=== PATIENT | male | born 1980 | race Caucasian/White ===

== ENCOUNTER 2021-04-22 14:23 | Emergency (ER) | payer OTHER, SELFPAY ==
[2021-04-22 14:23] VITALS: BP 136/100; PULSE 117; RESP 16; TEMP 36.9; O2SAT 100
--- NOTE | 2021-04-22 15:06 | ED.EYEPROB ---
HPI - Eye Problem General Chief complaint: Eye Problems Stated complaint: poss pink eye Time Seen by Provider: 04/22/21 14:37 Source: patient Mode of arrival: ambulatory Limitations: no limitations History of Present Illness HPI Narrative: Patient is a 41-year-old male complaining of left eye redness and matting of his eyelashes that started when he woke up this morning. Patient states that he might of scratched his eye trying to get an eyelash out. Related Data Home Medications Medication Instructions Recorded Confirmed adalimumab 40 mg/0.8 mL See Rx Instructions SUBCUT .COMPLEX 11/10/20 11/10/20 subcutaneous syringe kit Allergies Allergy/AdvReac Type Severity Reaction Status Date / Time Penicillins Allergy Unknown Rash Verified 04/22/21 14:34 Review of Systems Review of Systems: All systems reviewed & are unremarkable except as noted in HPI and below PMFSH Past Medical History Medical History Anxiety Arthritis Constipation Depression Diarrhea Hypertension Psoriasis Psoriatic arthritis Vision changes Wears glasses Family History Family History Other Depression Family history of arthritis Family history of gastrointestinal disorder Hypertension Social History Social History Smoking packs per day: 0.5 Smoking cigarettes per day: 10.0 Years smoked: 15 Smoking pack-years: 7.50 Smoking status: Current every day smoker Tobacco type: cigarettes Smoking end date: 07/01/15 Alcohol intake: current Drinks per week: 10 Gender identity (if verbalized by the patient): Male Exam Const: General: no acute distress and alert Orientation/consciousness: patient oriented x3 HENMT: Head: normal to inspection Ears: external ears normal General nose exam: Normal external nose present Mouth: Yes moist mucous membranes Eyes: Other: Injected conjunctiva left eye, negative for abrasion, negative corneal ulcer Neck: Neck: normal visual inspection Resp: Effort & Inspection: normal respiratory effort Neuro: General: patient oriented x3 and moves all extremities Course Vital Signs Vital signs: Vital Signs Temperature 36.9 C 04/22/21 14:23 Pulse Rate 117 H 04/22/21 14:23 Respiratory Rate 16 04/22/21 14:23 Blood Pressure 136/100 H 04/22/21 14:23 Pulse Oximetry 100 10/23/21 14:23 Temperature 36.9 C 04/22/21 14:23 Pulse Rate 117 H 04/22/21 14:23 Respiratory Rate 16 04/22/21 14:23 Blood Pressure 136/100 H 04/22/21 14:23 Pulse Oximetry 100 04/22/21 14:23 Discharge Plan Discharge Clinical Impression: Conjunctivitis Qualifiers: Conjunctivitis type: acute Acute conjunctivitis type: unspecified Laterality: left Qualified Code(s): H10.32 - Unspecified acute conjunctivitis, left eye Patient Disposition: Home, Self-Care Condition: Stable Instructions: Antibiotic Form, Conjunctivitis (ED) Prescriptions: New tobramycin 0.3 % drops 2 drp LEFT EYE Q4H Qty: 5 RF: 0 No Action Humira 40 mg/0.8 mL syringe kit See Rx Instructions subcut .COMPLEX RF: 0 Follow-up/Referrals: PHYSICIAN,OBIEE ARCHITECT [Primary Care Provider] - Time of Disposition: 15:11
== END 2021-04-22 16:15 | disposition home or self-care (01) ==
PROVIDERS: Emergency Provider Emergency Medicine
DX: H10.32 Unspecified acute conjunctivitis, left eye (principal); I10 Essential (primary) hypertension; M19.90 Unspecified osteoarthritis, unspecified site; L40.50 Arthropathic psoriasis, unspecified; F17.210 Nicotine dependence, cigarettes, uncomplicated
CPT/HCPCS: 99283

== ENCOUNTER 2021-08-11 05:50 | Emergency (ER) | payer OTHER, SELFPAY ==
[2021-08-11 05:58] VITALS: BP 122/77; PULSE 93; RESP 15; TEMP 36.3; O2SAT 100
--- NOTE | 2021-08-11 07:58 | PC.NURSE ---
Registration informed nurses station that pt is walking out
[2021-08-11 08:09] VITALS: BP 116/71; PULSE 100; RESP 18; O2SAT 100
--- NOTE | 2021-08-11 08:29 | PC.NURSE ---
pt walked self out again.
--- NOTE | 2021-08-11 08:54 | PC.NURSE ---
Pt seen walking out of room. tells a tech that he wants to leave but wants paperwork showing that he was here. Pt has no been seen by a provider yet.
--- NOTE | 2021-08-11 09:17 | ED.GENADULT ---
HPI - General Adult General Chief complaint: Skin/Abscess/Foreign Body Stated complaint: poison susana/oak Time Seen by Provider: 08/11/21 09:04 Source: patient Mode of arrival: ambulatory Limitations: no limitations History of Present Illness HPI narrative: Patient is 41 years old white male presents with itching rash started 5 days ago. Patient was working at a [employer] at that time and at the middle of the shift started having the above symptoms. History of psoriatic arthritis. Patient denies difficulty speaking, swallowing or breathing Related Data Home Medications Medication Instructions Recorded Confirmed adalimumab 40 mg/0.8 mL See Rx Instructions SUBCUT .COMPLEX 11/10/20 11/10/20 subcutaneous syringe kit Allergies Allergy/AdvReac Type Severity Reaction Status Date / Time Penicillins Allergy Unknown Rash Verified 08/11/21 06:02 Review of Systems Review of Systems: CONSTITUTIONAL: Denies fever, chills, or sweats. EYES: Denies visual changes, redness, or discharge. ENT: Denies rhinorrhea, congestion, sore throat, or otalgia. CARDIOVASCULAR: Denies chest pain, palpitations, or edema. RESPIRATORY: Denies cough or dyspnea. GASTROINTESTINAL: Denies abdominal pain, nausea, vomiting, or diarrhea. GENITOURINARY: Denies dysuria or hematuria. SKIN: Denies rash or itching. MUSCULOSKELETAL: Denies back pain, joint pain, or myalgia. NEUROLOGIC: Denies headache, numbness, or weakness. PSYCHIATRIC: Denies anxiety or depression. PMFSH Past Medical History Medical History Anxiety Arthritis Constipation Depression Diarrhea Hypertension Psoriasis Psoriatic arthritis Vision changes Wears glasses Family History Family History Other Depression Family history of arthritis Family history of gastrointestinal disorder Hypertension Social History Social History Smoking packs per day: 0.5 Smoking cigarettes per day: 10.0 Years smoked: 15 Smoking pack-years: 7.50 Smoking status: Current every day smoker Tobacco type: cigarettes Smoking end date: 07/01/15 Alcohol intake: current Drinks per week: 10 Gender identity (if verbalized by the patient): Male Exam Narrative: General appearance: Well-developed, well-nourished Skin: Scattered maculopapular rash Head: Normocephalic, nontraumatic Eyes: Clear conjunctiva ENT: Oropharynx normal, ears normal, nose normal Neck: Supple, nontender Chest and respiratory: Airway patent, no respiratory distress, no accessory muscle use Heart: Regular rate/rhythm Neurologic: Alert and oriented ?3, COMMUNICATIONS ADMINISTRATOR is normal as tested, no gross motor deficit Course Course Emergency Course: Stable, improving Vital Signs Vital signs: Vital Signs Temperature 36.3 C L 08/11/21 05:58 Pulse Rate 93 08/11/21 05:58 Respiratory Rate 15 08/11/21 05:58 Blood Pressure 122/77 08/11/21 05:58 Pulse Oximetry 100 08/11/21 05:58 Temperature 36.3 C L 08/11/21 05:58 Pulse Rate 100 08/11/21 08:09 Respiratory Rate 18 08/11/21 08:09 Blood Pressure 116/71 08/11/21 08:09 Pulse Oximetry 100 08/11/21 08:09 Medical Decision Making [facility] Narrative Medical decision making narrative: Contact dermatitis versus flareup of psoriasis Differential Diagnosis Differential Diagnosis: Acute dermatitis, flareup of psoriasis Vital Signs Vital Signs: Vital Signs Temperature 36.3 C L 08/11/21 05:58 Pulse Rate 93 08/11/21 05:58 Respiratory Rate 15 08/11/21 05:58 Blood Pressure 122/77 08/11/21 05:58 Pulse Oximetry 100
[2021-08-11] MEDS: EPINEPHrine HCL INJ 1 MG/ML AMPUL 0.3 MG IM (09:25)
[2021-08-11] MEDS: LORATADINE 10 MG TABLET PO (09:25)
== END 2021-08-11 09:35 | disposition home or self-care (01) ==
PROVIDERS: Emergency Provider Emergency Medicine; PCP Family Medicine
DX: L30.9 Dermatitis, unspecified (principal); I10 Essential (primary) hypertension; M19.90 Unspecified osteoarthritis, unspecified site; L40.50 Arthropathic psoriasis, unspecified; Z87.891 Personal history of nicotine dependence
CPT/HCPCS: 96372; 99283; A9270; J0171

== ENCOUNTER 2021-08-31 05:46 | Emergency (ER) | payer OTHER, SELFPAY ==
[2021-08-31 05:43] VITALS: BP 162/114; PULSE 87; RESP 16; TEMP 37.1; O2SAT 100
--- NOTE | 2021-08-31 05:57 | ECG_ITS ---
Measurements Intervals Harris Rate: 81 P: 15 MA: 173 QRS: -7 QRSD: 106 T: 17 QT: 388 QTc: 451 Interpretive Statements SINUS RHYTHM MINIMAL VOLTAGE CRITERIA FOR LVH, CONSIDER NORMAL VARIANT [MEETS CRITERIA IN ONE OF: R(aVL), S(V1), R(V5), R(V5/V6)+S(V1)] BORDERLINE ECG Electronically Signed On 08-31-2021 9:59:19 RESTORATIVE CARE TECHNICIAN by Ki Hollingsworth M.D.
--- NOTE | 2021-08-31 06:06 | ED.RECABL ---
HPI - Recheck/Abnormal Lab/Rx General Chief Complaint: Recheck/Abnormal Lab/Rx Stated Complaint: INCREASED BP AFTER DR DECREASED METOPROLOL Time Seen by Provider: 08/31/21 05:48 Source: patient History of Present Illness HPI narrative: Patient presents with concern for elevated blood pressure. Patient work-up this morning he felt shaky dizzy and had some blurry vision he took his blood pressure is 180 systolic he was concerned so called an ambulance he did not want to drive to the hospital thinking he may pass out. EMS also noted elevated blood pressure of 180 systolic. On arrival to the ER patient reports he started to feel improved. Reports some blurry vision but denies lightheadedness, chest pain, shortness of breath abdominal pain nausea, vomiting. Reports he was feeling well yesterday. Does report approximate 1 week ago he had a syncopal event his primary care doctor decreased his metoprolol from 75 mg twice daily to 25 mg twice daily his blood pressure has been doing well since that change. Related Data Home Medications Medication Instructions Recorded Confirmed adalimumab 40 mg/0.8 mL See Rx Instructions SUBCUT .COMPLEX 11/10/20 11/10/20 subcutaneous syringe kit Allergies Allergy/AdvReac Type Severity Reaction Status Date / Time Penicillins Allergy Unknown Rash Verified 08/31/21 05:53 Review of Systems Review of Systems: CONSTITUTIONAL: Denies fever, chills, or sweats. EYES: Denies redness, or discharge. ENT: Denies rhinorrhea, congestion, sore throat, or otalgia. CARDIOVASCULAR: Denies chest pain, palpitations, or edema. RESPIRATORY: Denies cough or dyspnea. GASTROINTESTINAL: Denies abdominal pain, nausea, vomiting, or diarrhea. GENITOURINARY: Denies dysuria or hematuria. SKIN: Denies rash or itching. MUSCULOSKELETAL: Denies back pain, joint pain, or myalgia. NEUROLOGIC: Denies headache, numbness, dizziness, or weakness. PSYCHIATRIC: Denies anxiety or depression. All systems reviewed & are unremarkable except as noted in HPI and below PMFSH Past Medical History Medical History Anxiety Arthritis Constipation Depression Diarrhea Hypertension Psoriasis Psoriatic arthritis Vision changes Wears glasses Family History Family History Other Depression Family history of arthritis Family history of gastrointestinal disorder Hypertension Social History Social History Smoking packs per day: 0.5 Smoking cigarettes per day: 10.0 Years smoked: 15 Smoking pack-years: 7.50 Smoking status: Current every day smoker Tobacco type: cigarettes Smoking end date: 07/01/15 Alcohol intake: current Drinks per week: 10 Gender identity (if verbalized by the patient): Male Exam Narrative: GENERAL: Well-appearing, well-nourished, and in no acute distress. HEAD: Normocephalic, atraumatic. EYES: PERRLA and EOMI. ENT: Nares clear, no rhinorrhea or epistaxis. Mucous membranes moist. NECK: Supple. No masses. No JVD CHEST: Clear to auscultation. No respiratory distress. No wheezes rales or rhonchi HEART: Regular rate and rhythm. No murmur heard. Normal peripheral pulses. ABDOMEN: Soft, nontender, nondistended, normal active bowel sounds. EXTREMITIES: Normal range of motion. No edema. SKIN: Warm, dry, no rash. NEURO: Cranial nerves II through XII are intact patient is 5 out of 5 strength in all extremities, sensation intact to light in all extremities alert and oriented x3. PSYCH: Normal mood and affect. Course Reevaluation(s) Reevaluation #1: Patient resting comfortably and is comfortable outpatient plan. Work-up reviewed with patient to include his CBC findings. Findings appear stable patient recommended he follow-up with his primary care doctor for further evaluation as he is not aware of his CBC abnormalities. Date: 08/31/21
[2021-08-31 06:14] LABS: Basophils Percent Auto 1.9 % (0.2-1.2); Eosinophils Percent Auto 1.9 % (0-4.4); Hematocrit 32.2 % (42.0-52.0); Hemoglobin 10.9 g/dL (14.0-18.0); Lymphocytes Absolute Auto 0.74 K/mm3 (0.9-3.2); Lymphocytes Percent Auto 34.7 % (18.3-44.2); Mean Corpuscular HGB Conc 33.9 g/dl (32-36); Mean Corpuscular Hemoglobin 33.4 pg (26-34); Mean Corpuscular Volume 98.8 fl (80-100); Mean Platelet Volume 9.1 fl (7.4-10.4); Monocytes Absolute Auto 0.4 K/mm3 (0.1-0.6); Monocytes Percent Auto 18.8 % (2.6-8.5); Neutrophils Absolute Auto 0.9 K/mm3 (1.3-6.7); Neutrophils Percent Auto 42.7 % (45.5-73.1); Platelet Count Result 96 k/mm3 (150-375); Red Blood Count 3.26 M/mm3 (4.6-6.20); Red Cell Distribution Width 13.3 % (11.5-14.5); White Blood Count 2.1 K/mm3 (4.5-10.0)
[2021-08-31 06:25] LABS: Add Urine Microscopic? YES; Appearance Urine Cloudy (Clear); Bilirubin Urine Negative (Negative); Blood Urine Negative (Negative); Color Urine Yellow (Yellow); Glucose Urine UA Negative (Negative); Ketones Urine Trace mg/dL (Negative); Leukocyte Esterase Ur Negative LEU/UL (Negative); Mucus Urine Few /lpf; Nitrate Urine Negative (Negative); Protein Urine 1+ mg/dL (Negative); RBC Urine 0-2 /hpf (0-2); Specific Grav Ur 1.017 (1.001-1.035); WBC Urine 0-3 /hpf
[2021-08-31 06:26] LABS: Alanine Aminotransferase 62 U/L (4-50); Albumin Level 4.6 g/dL (3.5-5.1); Alkaline Phosphatase 69 U/L (38-126); Anion Gap 15 mmol/L (8-16); Aspartate Amino Transferase 121 U/L (17-59); Bilirubin,Total 0.3 mg/dL (0.2-1.3); Blood Urea Nitrogen 10 mg/dL (9-20); Carbon Dioxide 27 mmol/L (22-30); Chloride 102 mmol/L (98-107); Estimated Glomerular Filt Rate > 60; Glucose 97 mg/dL (65-110); Potassium 3.3 mmol/L (3.4-5.0); Sodium 144 mmol/L (137-145)
[2021-08-31 06:39] VITALS: BP 141/101
== END 2021-08-31 07:12 | disposition home or self-care (01) ==
PROVIDERS: Emergency Provider Emergency Medicine; PCP Family Medicine
DX: I10 Essential (primary) hypertension (principal); M19.90 Unspecified osteoarthritis, unspecified site; L40.50 Arthropathic psoriasis, unspecified; F17.210 Nicotine dependence, cigarettes, uncomplicated
CPT/HCPCS: 36415; 80053; 81001; 85025; 93005; 99283

== ENCOUNTER 2022-11-20 08:32 | Inpatient (IN) | payer OTHER, SELFPAY ==
[2022-11-20] VITALS (12 sets, daily range): BP systolic 104–140; BP diastolic 62–100; PULSE 102–123; RESP 12–22; TEMP 36.6–37.2; O2SAT 97–100; BMI 17.9
--- NOTE | ~2022-11-20 | CT_ITS ---
EXAMINATION: CT brain wo con DATE: 11/20/2022 12:49 INDICATION: Seizure. Fall. TECHNIQUE: Computed tomography (CT) of the head was performed without intravenous contrast. The mA wa s adjusted according to patient size. Iterative reconstruction technique was employed. The dose-lengt h product was 681.00 mGy-cm. COMPARISON: Head CT 06/22/2017 FINDINGS: There is no intracranial hemorrhage, acute infarction, or abnormal intracranial mass lesion . The ventricles are normal in size. There is left periorbital soft tissue swelling. The orbits are n ormal. There is mild mucosal thickening in left maxillary sinus. The mastoid air cells are normal. IMPRESSION: 1. Normal brain. Reviewed, dictated and finalized at location A. IMPRESSION: 1. Normal brain.
--- NOTE | ~2022-11-20 | XR_ITS ---
EXAMINATION: XR elbow LT 2V DATE: 11/20/2022 10:08 INDICATION: Left elbow pain and swelling. TECHNIQUE: 2 views of left elbow were obtained. COMPARISON: None. FINDINGS: Bone alignment is normal. No fracture. Joint spaces are normal. There is an elbow joint eff usion. IMPRESSION: 1. Elbow joint effusion. No fracture identified. Reviewed, dictated and finalized at location A.
--- NOTE | ~2022-11-20 | XR_ITS ---
AP and oblique views of the right ribs, and AP and lateral chest radiographs Clinical History: Pain Findings: No rib fracture is seen. Osseous alignment is anatomic. Lungs are clear, without focal cons olidation or pleural effusion. Cardiomediastinal contour is within normal limits. Soft tissues are un remarkable. Impression: No rib fracture is seen. Clear lungs. Reviewed, dictated and finalized at location . Impression: No rib fracture is seen. Clear lungs.
--- NOTE | ~2022-11-20 | XR_ITS ---
EXAMINATION: XR chest 2V DATE: 11/24/2022 09:35 INDICATION: Fever. TECHNIQUE: Frontal and lateral views of the chest were obtained. COMPARISON: Chest 2 views 11/22/2022 FINDINGS: There is no pneumonia, pleural effusion, or pneumothorax. The heart size is normal. IMPRESSION: 1. No acute cardiopulmonary disease. Reviewed, dictated and finalized at location A.
--- NOTE | ~2022-11-20 | XR_ITS ---
AP view of the pelvis and AP and lateral views of the bilateral hips Clinical history: Pain Findings: No acute fracture or dislocation is seen. Osseous alignment is anatomic. Bilateral hip and SI joint spaces are preserved. Soft tissues are unremarkable. Impression: No significant abnormality is seen. Reviewed, dictated and finalized at location . Impression: No significant abnormality is seen.
--- NOTE | ~2022-11-20 | US_ITS ---
EXAMINATION: US venous doppler [facility] DATE: 11/24/2022 10:22 INDICATION: Lower limb pain. TECHNIQUE: Grayscale ultrasound images without and with compression and Doppler ultrasound images of the bilateral lower extremity veins were obtained. COMPARISON: Ultrasound 04/01/2013 FINDINGS: The visualized portions of right common femoral vein, profunda (deep) femoral vein, femoral vein, pop liteal vein, peroneal veins, posterior tibial veins, and greater saphenous vein outflow are patent. The visualized portions of left common femoral vein, profunda femoral vein, femoral vein, popliteal v ein, peroneal veins, posterior tibial veins, and greater saphenous vein outflow are patent. IMPRESSION: 1. No deep venous thrombosis. Reviewed, dictated and finalized at location A.
--- NOTE | ~2022-11-20 | XR_ITS ---
Left ankle Technique: AP and lateral views were obtained. Clinical History: Pain Findings: No acute fracture or dislocation is seen. Osseous alignment is anatomic. Ankle mortise and other visualized joint spaces are preserved. Soft tissues are otherwise unremarkable. Impression: Unremarkable left ankle. Reviewed, dictated and finalized at location . Impression: Unremarkable left ankle.
--- NOTE | ~2022-11-20 | US_ITS ---
Limited Abdominal Sonogram: Real-time sonographic imaging of the right upper quadrant was performed. Clinical History: Abnormal LFTs Findings: The liver appears echogenic, with no evidence of mass lesion or bile duct dilatation. Main portal vein demonstrates normal direction of flow. The gallbladder is well distended, and appears no rmal with no evidence of gallstone or wall thickening. The common bile duct measures 4 mm. The visua lized pancreas, aorta, and IVC are unremarkable. Impression: Diffuse fatty infiltration of liver. Reviewed, dictated and finalized at location M. Impression: Diffuse fatty infiltration of liver.
[2022-11-20 10:11] LABS: Basophils Percent Auto 0.3 % (0.2-1.2); Hematocrit 38.8 % (42.0-52.0); Hemoglobin 12.9 g/dL (14.0-18.0); Immature Granulocyte Absolute 0.06 K/mm3 (0.00-0.031); Immature Granulocyte Percent A 0.8 % (0-0.5); Immature Platelet Fraction Pct 10.8 % (0.9-11.2); Lymphocytes Absolute Auto 1.03 K/mm3 (0.9-3.2); Lymphocytes Percent Auto 14.1 % (18.3-44.2); Mean Corpuscular HGB Conc 33.2 g/dl (32-36); Mean Corpuscular Hemoglobin 34.4 pg (26-34); Mean Corpuscular Volume 103.5 fl (80-100); Mean Platelet Volume 11.8 fl (7.4-10.4); Monocytes Absolute Auto 1.1 K/mm3 (0.1-0.6); Monocytes Percent Auto 15.2 % (2.6-8.5); Neutrophils Absolute Auto 5.1 K/mm3 (1.3-6.7); Neutrophils Percent Auto 69.6 % (45.5-73.1); Platelet Count Result 68 k/mm3 (150-375); Red Blood Count 3.75 M/mm3 (4.6-6.20); Red Cell Distribution Width 12.8 % (11.5-14.5); White Blood Count 7.3 K/mm3 (4.5-10.0)
[2022-11-20 10:12] LABS: Alanine Aminotransferase 69 U/L (6-50); Albumin Level 5.5 g/dL (3.5-5.1); Alkaline Phosphatase 67 U/L (38-126); Anion Gap 33 mmol/L (8-16); Aspartate Amino Transferase 152 U/L (17-59); Bilirubin,Total 2.9 mg/dL (0.2-1.3); Blood Urea Nitrogen 13 mg/dL (9-20); Calcium 9.6 mg/dL (8.4-10.2); Carbon Dioxide 14 mmol/L (22-30); Chloride 85 mmol/L (98-107); Estimated CRCL calculation 144 ml/min; Estimated Glomerular Filt Rate > 60; Glucose 71 mg/dL (65-110); Potassium 3.1 mmol/L (3.4-5.0); Sodium 132 mmol/L (137-145)
[2022-11-20] MEDS: SODIUM CHLORIDE 0.9% IV 1,000 ML 999 ML IV CONT (12:33)
--- NOTE | 2022-11-20 12:49 | ED.ALCOHOL ---
HPI - Alcohol General Chief Complaint: Alcohol Stated Complaint: multiple complaints Time Seen by Provider: 11/20/22 10:25 Source: patient Mode of arrival: ambulatory Limitations: no limitations History of Present Illness HPI narrative: 42-year-old with a history of hypertension, chronic alcoholism here with complaints of having seizure. Patient states that he last drank 6 days ago and has not had a single drop of alcohol. Patient also states that he is not eating or drinking. He denies any chest pain or shortness of breath or abdominal pain. He states that he has taken medication few days ago and he ran out of his antiwithdrawal medication complaint: alcohol withdrawal Chronic alcohol use: Yes Previous visits for alcohol intoxication: No Associated symptoms: denies other symptoms Related Data Home Medications Medication Instructions Recorded Confirmed adalimumab 40 mg/0.8 mL See Rx Instructions subcut .COMPLEX 11/10/20 11/10/20 subcutaneous syringe kit (Humira) Allergies Allergy/AdvReac Type Severity Reaction Status Date / Time Penicillins Allergy Unknown Rash Verified 08/31/21 05:53 Review of Systems Review of Systems: All systems reviewed & are unremarkable except as noted in HPI and below Constitutional: Constitutional: Reports no additional constitutional complaints Eyes: Eyes: Reports no additional eye complaints ENT: Reports system reviewed and no additional complaints, except as documented Cardiovascular: Cardiovascular: Reports no additional cardiovascular complaints Respiratory: Respiratory: Reports no additional respiratory complaints Gastrointestinal: Gastrointestinal: Reports no additional gastrointestinal complaints Musculoskeletal: Musculoskeletal: Reports no additional musculoskeletal complaints PMFSH Past Medical History Medical History Anxiety Arthritis Constipation Depression Diarrhea Hypertension Psoriasis Psoriatic arthritis Vision changes Wears glasses Family History Family History Other Depression Family history of arthritis Family history of gastrointestinal disorder Hypertension Social History Social History Smoking packs per day: 0.5 Smoking cigarettes per day: 10.0 Years smoked: 15 Smoking pack-years: 7.50 Smoking status: Current every day smoker Tobacco type: cigarettes Smoking end date: 07/01/15 Alcohol intake: current Drinks per week: 10 Living arrangements: with family Gender identity (if verbalized by the patient): Male Exam Narrative: GENERAL: Well-appearing, well-nourished, and in no acute distress. HEAD: Normocephalic, atraumatic. EYES: PERRLA and EOMI. raccoon eye on the left ENT: Nares clear, no rhinorrhea or epistaxis. Mucous membranes moist. NECK: Supple. CHEST: Clear to auscultation. No respiratory distress. HEART: Tachycardic. No murmur heard. Normal peripheral pulses. ABDOMEN: Soft, nontender, nondistended, normal active bowel sounds. EXTREMITIES: Normal range of motion. No edema. SKIN: Warm, dry, no rash. NEURO: No focal deficits. Alert and oriented x3. PSYCH: Normal mood and affect. Course Course Emergency Course: Patient had no further episodes of seizures while he was here in the ER. I have reviewed his lab work and informed him that he needs to be admitted to the hospital he is willingly agreed. Discussed with Dr. Goetz accepted the patient Vital Signs Vital signs: Vital Signs Temperature 37.2 C 11/20/22 08:38 Pulse Rate 123 H 11/20/22 08:38 Respiratory Rate 16 11/20/22 08:38 Blood Pressure 129/100 H 11/20/22 08:38 Pulse Oximetry 100 11/20/22 08:38 Oxygen Delivery Room Air 11/20/22 08:38 Temperature 37.2 C 11/20/22 08:38 Pulse Rate 111 H 11/20/22 09:49 Respiratory Rate 12 11/20/22 09:49 Blood
[2022-11-20 13:27] LABS: Ethanol < 10 mg/dL (<10)
[2022-11-20] MEDS: POTASSIUM CHLORIDE 20 MEQ TABLET 40 MEQ PO (13:49)
[2022-11-20] MEDS: THIAMINE HCL 200 MG/2 ML VIAL 100 MG IV PUSH (13:50)
[2022-11-20] MEDS: LORazepam INJ (*CRX) 2 MG/ML VIAL IV PUSH ×3 (13:50→17:10)
[2022-11-20 13:58] LABS: Anion Gap 30 mmol/L (8-16); Blood Urea Nitrogen 12 mg/dL (9-20); Calcium 9.6 mg/dL (8.4-10.2); Carbon Dioxide 12 mmol/L (22-30); Chloride 90 mmol/L (98-107); Estimated CRCL calculation 144 ml/min; Estimated Glomerular Filt Rate > 60; Glucose 76 mg/dL (65-110); Magnesium 1.7 mg/dL (1.6-2.3); Potassium 3.1 mmol/L (3.4-5.0); Sodium 132 mmol/L (137-145)
[2022-11-20] MEDS: ONDANSETRON INJ 4 MG/2 ML VIAL IV PUSH (14:36)
[2022-11-20] MEDS: DEXTROSE 5%/0.9% SOD CHL 1,000 ML 100 ML IV CONT ×2 (14:41→23:47)
--- NOTE | 2022-11-20 15:17 | PM.IMHP ---
H&P: HPI History of Present Illness Date/Time: 11/20/22 14:30 Chief Complaint: Alcohol withdrawal symptoms. Narrative: This is a 42-year-old male with longstanding history of alcohol abuse, alcohol withdrawal seizures, hypertension, and psoriatic arthritis who presented to the emergency department via his own private vehicle from home for evaluation of alcohol withdrawal symptoms. He drinks up to 1/5 of alcohol a day and has for nearly 20 years. He has had periods of sobriety for no more than 2 to 3 months at a time. He has not drank for 6 days and he tells me that he has ?had a rough go of it.? The 1st couple of days he had pretty significant nausea and vomiting associated with sweats. He has become progressively more weak since that time and he has had several falls, none of which he remembers. He has since that he has been having alcohol withdrawal seizures as well due to a tongue laceration that he noticed yesterday. This morning his family encouraged him to come to the ER so he drove himself here. Vital signs on arrival: Temperature 98.9?, pulse 123, respiratory rate 16, blood pressure 129/100, pulse ox 100% room air. Labs were significant for a mild macrocytic anemia, thrombocytopenia, mild electrolyte abnormalities, increased anion gap, and elevated LFTs. Urine drug screen was negative and his ethyl alcohol level was less than 10. Brain CT showed no acute findings. Left elbow x-ray done due to pain and swelling showed and joint effusion with no evidence of fracture. He was aggressively hydrated and he required several doses of Ativan and Haldol for his withdrawal symptoms. When I initially saw the patient he was a bit tremulous and tachycardic though several hours later I was called to reassess him and he was standing up, confused, and hallucinating. He is now much more calm and he is being admitted to the IMU for close monitoring. Review of Systems Review of Systems: Twelve systems were reviewed. Endorses sweats. No fever or chills. Complains of tongue pain from tongue bite a couple of days ago. Has a mild headache but nothing significant. No vertigo. No visual changes. No focal weakness or paresthesias. Denies neuropathy symptoms. No sensations of racing heart or shortness of breath. He has not had any vomiting today. Denies hematemesis, melena, and hematochezia. Except as documented, all other systems were reviewed and are negative. [facility] Past Medical History Medical History (Updated 11/20/22 @ 23:36 by Katelyn Ramirez PA-C) Alcohol withdrawal seizure Alcoholism Anxiety Arthritis Depression Hypertension Psoriasis Psoriatic arthritis Surgical History Surgical History (Updated 11/20/22 @ 15:25 by Katelyn Ramirez PA-C) No history of previous surgery Family History Family History Other Depression Family history of arthritis Family history of gastrointestinal disorder Hypertension Social History Social History (Updated 11/20/22 @ 23:32 by Katelyn Ramirez PA-C) Social History: Surrogate medical decision maker: Cipriano Gutierres, father. Code status: Full code. Smoking packs per day: 0.5 Smoking cigarettes per day: 10.0 Years smoked: 15 Smoking pack-years: 7.50 Smoking status: Former smoker Tobacco type: cigarettes Smoking end date: 10/07/22 Alcohol intake: former Drinks per week: 28 Alcohol use details: Half to an entire 1/5 of vodka a day. Substance use: never Lack of Transportation: No Lack of Food: Never True Current Housing: I Have Housing Concerned About Future Housing: Decline to Answer Difficulty Paying Gas/Electric Bills: Decline to Answer Difficulty Paying for Meds: Decline to Answer Currently Unemployed: Decline to Answer Education: Decline to Answer Difficulty w/ Childcare or Family Care: Decline to Answer Additional living arrangements comments: Patient lives in his own house in [place].
--- NOTE | 2022-11-20 15:55 | PCRCNOTE ---
ABG NOT DRAWN AT THIS TIME PER MARQUES SHAH.; STATES WILL CALL WHEN PT. IS A LITTLE CALMER AND WE CAN DRAW THE ABG.
--- NOTE | 2022-11-20 16:45 | PC.NURSE ---
Dinner tray ordered for pt.
[2022-11-20] MEDS: HALOPERIDOL LACTATE 5 MG/ML VIAL (17:11)
[2022-11-20] MEDS: SODIUM BICARBONATE 8.4% 50 MEQ/50 ML SYRINGE 100 MEQ (18:15)
[2022-11-20 18:30] LABS: pH ABG 7.378 (7.350-7.450)
[2022-11-20 18:32] LABS: PCO2 ABG 17.6 mmHg (35.0-45.0); PO2 ABG 108.6 mmHg (80.0-100.0)
[2022-11-20 18:33] LABS: Base Excess ABG -12.6 mEq/l (+/-2.0); HCO3 ABG 10.1 mEq/l (22.0-26.0); Total Hemoglobin 12.5 g/dL (12.0-18.0)
[2022-11-20 18:34] LABS: Alveolar/Arterial O2 Gradient 20.1 mmHg; Oxygen Content ABG 17.1 %vol (16.0-22.0)
[2022-11-20 18:35] LABS: Oxyhemoglobin 96.6 % THb (90.0-100.0)
[2022-11-20 18:36] LABS: Carboxyhemoglobin 0.6 % THb (0-2.0); Methemoglobin ABG 0.3 %THb (0-1.5); Reduced Hemoglobin 2.5 %THb (0-5.0)
[2022-11-20 18:37] LABS: PO2 FiO2 Ratio Arterial Blood 5.17 %; Site Drawn LEFT BRACHIAL
[2022-11-20 18:42] LABS: Device ROOM AIR
[2022-11-20] MEDS: SODIUM CHLORIDE 0.9% IV 1,000 ML 125 ML IV CONT (19:15)
[2022-11-20 19:24] LABS: Folic Acid 5.4 ng/mL (2.76->20)
[2022-11-20 20:14] LABS: Amphetamine Screen Urine Negative (Negative); Barbiturate Screen Urine Negative (Negative); Benzodiazepines Screen Urine Negative (Negative); Cannabinoid Screen Urine Negative (Negative); Cocaine Screen Urine Negative (Negative); Methadone Screen Urine Negative (Negative); Opiate Screen Urine Negative (Negative); Phencyclidine Screen Urine Negative (Negative)
[2022-11-20 20:33] LABS: Anion Gap 20 mmol/L (8-16); Blood Urea Nitrogen 11 mg/dL (9-20); Calcium 8.2 mg/dL (8.4-10.2); Carbon Dioxide 17 mmol/L (22-30); Chloride 96 mmol/L (98-107); Estimated CRCL calculation 170 ml/min; Estimated Glomerular Filt Rate > 60; Glucose 72 mg/dL (65-110); Magnesium 1.6 mg/dL (1.6-2.3); Potassium 3.4 mmol/L (3.4-5.0); Sodium 133 mmol/L (137-145)
--- NOTE | 2022-11-20 20:44 | ADMGEN ---
This patient, Kian Gutierres, was admitted to Intensive Care Unit-6. Patient/family oriented to hospital policies and general routines including ID bracelet, bed and alarms, visiting hours, pain management, procedures, bathroom and other care routines, personal items, smoking policy, room service/diet, and visiting hours. Information on how to activate the Rapid Response Team has been discussed. Patient/Family are encouraged to report perceived risks to care and to ask questions if they do not understand what they are told or what they should do.
[2022-11-20 23:53] LABS: Lipase 155 U/L (23-300)
[2022-11-21] VITALS (17 sets, daily range): BP systolic 107–154; BP diastolic 65–103; PULSE 96–128; RESP 16–22; TEMP 36.4–37.4; O2SAT 97–100
[2022-11-21 00:06] LABS: Glucose Point of Care 79 mg/dl (65-105)
--- NOTE | 2022-11-21 00:59 | PC.NURSE ---
This patient, Kian Gutierres, was received from [ic[facility] 6] on 11/21/22 at 0040. Patient/family oriented to unit policies and routines
[2022-11-21] MEDS: CLINDAMYCIN 600 MG/D5W 50 ML 600 MG/50 ML PIGGYBACK 100 MG IVPB ×4 (01:42→21:10)
[2022-11-21 02:52] LABS: Iron 65 ug/dL (49-181)
[2022-11-21 03:01] LABS: Percent Iron Saturation 23 % (20-50)
[2022-11-21 04:56] LABS: Hematocrit 30.6 % (42.0-52.0); Hemoglobin 10.3 g/dL (14.0-18.0); Mean Corpuscular HGB Conc 33.7 g/dl (32-36); Mean Corpuscular Volume 104.1 fl (80-100); Mean Platelet Volume 10.2 fl (7.4-10.4); Platelet Count Result 69 k/mm3 (150-375); Red Blood Count 2.94 M/mm3 (4.6-6.20); Red Cell Distribution Width 13.1 % (11.5-14.5); White Blood Count 4.9 K/mm3 (4.5-10.0)
[2022-11-21 05:06] LABS: Prothrombin Time 13.2 Seconds (11.1-14.7)
[2022-11-21 05:10] LABS: Alanine Aminotransferase 49 U/L (6-50); Alkaline Phosphatase 47 U/L (38-126); Anion Gap 18 mmol/L (8-16); Aspartate Amino Transferase 96 U/L (17-59); Bilirubin,Total 1.6 mg/dL (0.2-1.3); Blood Urea Nitrogen 6 mg/dL (9-20); Calcium 7.8 mg/dL (8.4-10.2); Carbon Dioxide 15 mmol/L (22-30); Chloride 100 mmol/L (98-107); Estimated CRCL calculation 171 ml/min; Estimated Glomerular Filt Rate > 60; Glucose 90 mg/dL (65-110); Magnesium 1.5 mg/dL (1.6-2.3); Potassium 3.1 mmol/L (3.4-5.0); Sodium 133 mmol/L (137-145)
[2022-11-21 06:14] LABS: Glucose Point of Care 100 mg/dl (65-105)
[2022-11-21] MEDS: DEXTROSE 5%/0.9% SOD CHL 1,000 ML 150 ML IV CONT (06:44)
[2022-11-21] MEDS: PANTOPRAZOLE SODIUM IV 40 MG VIAL IV PUSH (08:19)
--- NOTE | 2022-11-21 10:52 | PM.IMPN ---
Progress Note: A&P Assessment and Plan (1) Alcohol withdrawal syndrome: Qualifiers: Complication of substance-induced condition: uncomplicated Qualified Code(s): F10.930 - Alcohol use, unspecified with withdrawal, uncomplicated Code(s): F10.939 - Alcohol use, unspecified with withdrawal, unspecified Status: Acute Assessment and Plan: Patient states he has not had any alcohol for 7 days. He probably fell (related to seizure?) resulting in the facial trauma. CT brain showing no acute findings except left periorbital swelling. Left elbow xray does shows joint effusion but not felt to be infectious. In the ED he was anxious, tremulous, and began hallucinating that improved with Ativan and Haldol. He was started on CIWA protocol running mostly 6-8. Patient was congratulated stopping alcohol use. Care coordination provided information about alcohol rehab. Discussed with him at length about the benefits of abstaining from alcohol use. Start thiamine and folic acid Increase activity Ativan available prn for elevated CIWA. Hold off on scheduled Librium at this time (2) Alcohol withdrawal seizure: Code(s): F10.939 - Alcohol use, unspecified with withdrawal, unspecified; R56.9 - Unspecified convulsions Status: Acute Assessment and Plan: Patient likely had seizure(s) at home over the last few days since stopping alcohol. He has evidence of tongue bite and bruising to suggests falls. No anti-epileptic meds at this time. Seizure precautions. (3) Alcoholic ketoacidosis: Code(s): E87.29 - Other acidosis Status: Acute Assessment and Plan: Serum bicarb dropped to 12 with AG 33. ABG with normal pH but pCO2 17. Received 2 amps of sodium bicarbonate in the ED. With IV fluids, his bicarb 15 but AG now 18. lactic acid normal. Continue IV fluids. (4) Dehydration: Code(s): E86.0 - Dehydration Status: Acute Assessment and Plan: He looked profoundly dry on exam and has been aggressively hydrated. (5) Tongue laceration: Code(s): S01.512A - Laceration without foreign body of oral cavity, initial encounter Status: Acute Assessment and Plan: Tongue laceration looks at least a day old. The wound is not gaping and not felt it needed sutures. He was started on clindamycin given his poor dental hygiene. (6) Electrolyte abnormality: Code(s): E87.8 - Other disorders of electrolyte and fluid balance, not elsewhere classified Status: Acute Assessment and Plan: Mild hyponatremia and hypokalemia. Mag level low today. Continue IV fluids Replace potassium and Mag Follow (7) Macrocytic anemia: Code(s): D53.9 - Nutritional anemia, unspecified Status: Acute Assessment and Plan: B12 and folate levels normal. [place] related to underlying liver disease from his alcholism. (8) Thrombocytopenia: Code(s): D69.6 - Thrombocytopenia, unspecified Status: Acute Assessment and Plan: Related to alcoholic liver disease. (9) Transaminitis: Code(s): R74.01 - Elevation of levels of liver transaminase levels Status: Acute Assessment and Plan: LFTs elevated felt related to alcoholic liver disease and alcoholic hepatitis. Abdominal exam is benign. LFTs better Trend LFTs. Plan Tobacco abuse - he was congratulated on stopping smoking DVT prophylaxis - SCDs Subjective Date/time seen: 11/21/22 10:52 Interval history: 42yo male with longstanding history of alcohol abuse, alcohol withdrawal seizures, hypertension, and psoriatic arthritis who presented to the emergency department via his own private vehicle from home for evaluation of alcohol withdrawal symptoms. Assuming care. Chart reviewed. Patient states he stopped smoking drinking about 7 days ago. He has bruising around the left eye and states he thinks he has pinkeye?. He did not taper off alcohol but stoppe
[2022-11-21] MEDS: MAGNESIUM SULF 2 GM/WATER 50ML 2 GM/50 ML BAG IVPB (10:58)
[2022-11-21] MEDS: POTASSIUM CHLORIDE 20 MEQ TABLET 40 MEQ PO (11:01)
[2022-11-21 11:11] LABS: Appearance Urine Clear (Clear); Bilirubin Urine Negative (Negative); Blood Urine 1+ (Negative); Color Urine Dark Yellow (Yellow); Glucose Urine UA Negative (Negative); Ketones Urine 4+ mg/dL (Negative); Leukocyte Esterase Ur Negative LEU/UL (Negative); Nitrate Urine Negative (Negative); Protein Urine 2+ mg/dL (Negative); Specific Grav Ur 1.021 (1.001-1.035); pH Urine 5.5 (5.0-9.0)
[2022-11-21 11:35] LABS: RBC Urine 0-2 /hpf (0-2); WBC Urine 0-3 /hpf (0-3)
[2022-11-21 11:37] LABS: Transitional Epi Cells Urine Few /hpf (None Seen)
[2022-11-21 11:39] LABS: Add Urine Microscopic? YES
[2022-11-21] MEDS: THIAMINE HCL 100 MG TABLET PO (11:58)
[2022-11-21] MEDS: FOLIC ACID 1 MG TABLET PO (11:59)
[2022-11-21] MEDS: SODIUM CHLORIDE 0.9% IV 1,000 ML 100 ML IV CONT (11:59)
[2022-11-21 12:41] LABS: Glucose Point of Care 115 mg/dl (65-105)
[2022-11-21 16:51] LABS: Glucose Point of Care 127 mg/dl (65-105)
[2022-11-21 23:28] LABS: Glucose Point of Care 121 mg/dl (65-105)
[2022-11-22] VITALS (23 sets, daily range): BP systolic 117–175; BP diastolic 90–125; PULSE 81–172; RESP 12–24; TEMP 36.2–38.2; O2SAT 93–100
[2022-11-22] MEDS: SODIUM CHLORIDE 0.9% IV 1,000 ML 100 ML IV CONT (01:15)
[2022-11-22 04:51] LABS: Hematocrit 31.8 % (42.0-52.0); Hemoglobin 10.6 g/dL (14.0-18.0); Immature Platelet Fraction Pct 5.3 % (0.9-11.2); Mean Corpuscular HGB Conc 33.3 g/dl (32-36); Mean Corpuscular Hemoglobin 34.3 pg (26-34); Mean Corpuscular Volume 102.9 fl (80-100); Mean Platelet Volume 9.6 fl (7.4-10.4); Platelet Count Result 85 k/mm3 (150-375); Red Blood Count 3.09 M/mm3 (4.6-6.20); White Blood Count 3.3 K/mm3 (4.5-10.0)
[2022-11-22 05:03] LABS: Alanine Aminotransferase 50 U/L (6-50); Albumin Level 4.3 g/dL (3.5-5.1); Alkaline Phosphatase 57 U/L (38-126); Anion Gap 7 mmol/L (8-16); Aspartate Amino Transferase 110 U/L (17-59); Bilirubin,Total 1.7 mg/dL (0.2-1.3); Blood Urea Nitrogen 2 mg/dL (9-20); Calcium 8.5 mg/dL (8.4-10.2); Carbon Dioxide 30 mmol/L (22-30); Chloride 98 mmol/L (98-107); Estimated CRCL calculation 264 ml/min; Estimated Glomerular Filt Rate > 60; Glucose 109 mg/dL (65-110); Magnesium 1.7 mg/dL (1.6-2.3); Potassium 3.6 mmol/L (3.4-5.0); Sodium 135 mmol/L (137-145)
[2022-11-22] MEDS: CLINDAMYCIN 600 MG/D5W 50 ML 600 MG/50 ML PIGGYBACK 100 MG IVPB (05:18)
[2022-11-22] MEDS: LORazepam INJ (*CRX) 2 MG/ML VIAL IV PUSH (05:28)
--- NOTE | 2022-11-22 08:20 | PC.NURSE ---
Saw shift lab technician nurse give 4mg ativan to this patient at 7:30am today. Do not see it documented now, so charting must not have saved.
[2022-11-22] MEDS: FOLIC ACID 1 MG TABLET PO (09:03)
[2022-11-22] MEDS: PANTOPRAZOLE 40 MG TABLET PO (09:03)
[2022-11-22] MEDS: THIAMINE HCL 100 MG TABLET PO (09:03)
[2022-11-22] MEDS: ACETAMINOPHEN 325 MG TABLET 650 MG PO ×2 (09:07→21:23)
[2022-11-22] MEDS: LORazepam INJ (*CRX) 2 MG/ML VIAL 1 MG IV PUSH (09:20)
--- NOTE | 2022-11-22 09:42 | PM.IMPN ---
Progress Note: A&P Assessment and Plan (1) Alcohol withdrawal syndrome: Qualifiers: Complication of substance-induced condition: uncomplicated Qualified Code(s): F10.930 - Alcohol use, unspecified with withdrawal, uncomplicated Code(s): F10.939 - Alcohol use, unspecified with withdrawal, unspecified Status: Acute Assessment and Plan: Patient states he has not had any alcohol for 8 days although appears to still be experiencing w/d symptoms. He probably fell (related to seizure?) resulting in the facial trauma; suspect also multiple falls given that the bruising is different stages. In the ED he was anxious, tremulous, and began hallucinating that improved with Ativan and Haldol. -CT brain showing no acute findings except left periorbital swelling. -Left elbow xray does shows joint effusion but not felt to be infectious. -Care coordination provided information about alcohol rehab. -Started on CIWA protocol. was better last night but worse this morning and received Ativan. -Possible hallucinations now. -Continue thiamine and folic acid -Unsteady gait. B12 and folate normal. Could be cerebellar ataxia from his alcohol abuse or related to deconditioning -tachycardic and Hypetensive now. TSH normal. Has a positive fluid balance. Related to w/d? Increase activity PT/OT Schedule Librium now Ativan available prn for elevated CIWA. Low dose Seroquel at night. More agitated today. Better with IV Ativan. Advance Librium. Consider Precedex. He has been here before with similar presentation requiring Precedex. (2) Alcohol withdrawal seizure: Code(s): F10.939 - Alcohol use, unspecified with withdrawal, unspecified; R56.9 - Unspecified convulsions Status: Acute Assessment and Plan: Patient likely had seizure(s) at home over the last few days since stopping alcohol. He has evidence of tongue bite and bruising to suggests falls. No anti-epileptic meds at this time. Seizure precautions.Now having pain in the left ankle and ribs so will check xrays. Brusing but no pain in the bilateral hip area. Tongue laceration does not look infected so will do peridex and stop abx. (3) Alcoholic ketoacidosis: Code(s): E87.29 - Other acidosis Status: Acute Assessment and Plan: Serum bicarb 12 with AG 33. ABG with normal pH but pCO2 17. Received 2 amps of sodium bicarbonate in the ED. lactic was normal. With IV fluids, his bicarb 30 with normal AG. Stop IV fluids. (4) Dehydration: Code(s): E86.0 - Dehydration Status: Acute Assessment and Plan: He looked profoundly dry on exam and has been aggressively hydrated. Positive fluid balance. Stop IV fluids (5) Tongue laceration: Code(s): S01.512A - Laceration without foreign body of oral cavity, initial encounter Status: Acute Assessment and Plan: Tongue laceration looks at least a day old. The wound was not gaping and not felt it needed sutures. He was started on clindamycin given his poor dental hygiene. No evidence of infection so stop abx now and add Peridex. (6) Electrolyte abnormality: Code(s): E87.8 - Other disorders of electrolyte and fluid balance, not elsewhere classified Status: Acute Assessment and Plan: Mild hyponatremia, hypoMg and hypokalemia. Na better and potassium and mag normal. Follow (7) Macrocytic anemia: Code(s): D53.9 - Nutritional anemia, unspecified Status: Acute Assessment and Plan: B12 and folate levels normal. Hgb remaining stable [place] related to underlying liver disease from his alcoholism. (8) Thrombocytopenia: Code(s): D69.6 - Thrombocytopenia, unspecified Status: Acute Assessment and Plan: Related to alcoholic liver disease. Slightly better today. (9) Transaminitis: Code(s): R74.01 - Elevation of levels of liver transaminase levels Status: Acute Assessment and Plan:
--- NOTE | 2022-11-22 10:08 | ECG_ITS ---
Measurements Intervals [place] Rate: 119 P: 19 [place]: 159 QRS: -13 QRSD: 96 T: 13 QT: 320 QTc: 450 Interpretive Statements SINUS TACHYCARDIA VOLTAGE CRITERIA FOR LVH BORDERLINE T WAVE ABNORMALITY- INFERIOR LEADS BASELINE ARTIFACT- II, III, AVF ABNORMAL ECG COMPARED TO ECG 08/31/2021 06:00:31 SINUS TACHYCARDIA NOW PRESENT Electronically Signed On 11-22-2022 10:53:15 CDT by Laron Us D.O.
[2022-11-22] MEDS: chlordiazePOXIDE (*CRX) 25 MG CAPSULE PO ×2 (10:32→12:27)
[2022-11-22] MEDS: LORazepam INJ (*CRX) 2 MG/ML VIAL 4 MG IV PUSH (11:30)
[2022-11-22 12:07] LABS: Glucose Point of Care 110 mg/dl (65-105)
[2022-11-22] MEDS: HALOPERIDOL LACTATE 5 MG/ML VIAL IM (12:31)
--- NOTE | 2022-11-22 13:01 | WPDCNINT ---
Assessment and Plan Assessment and plan (1) DTs (delirium tremens): Code(s): F10.931 - Alcohol use, unspecified with withdrawal delirium Status: Acute Assessment and Plan: Will start patient on Precedex infusion. Will give bolus followed by titratable infusion Continue p.r.n. Ativan as supplement Patient is also on scheduled Librium IVF bolus followed by infusion Continue thiamine and folic acid Physical restraints at this time until patient is more calm (2) Electrolyte abnormality: Code(s): E87.8 - Other disorders of electrolyte and fluid balance, not elsewhere classified Status: Acute Assessment and Plan: Patient's potassium level is on the lower side of normal. Will start IV fluids with potassium Will give Mag replacement Plan DVT prophylaxis -SCDs Case discussed with Dr. Yi from Internal Medicine Total Critical Care Time -32 minutes Due to a high probability of clinically significant, life threatening deterioration, the patient required my highest level of preparedness to intervene emergently and I personally spent this critical care time directly and personally managing the patient. This critical care time included obtaining a history; examining the patient; pulse oximetry; ordering and review of studies; arranging urgent treatment with development of a management plan; evaluation of patient's response to treatment; frequent reassessment; and discussions with other providers. It was exclusive of separately billable procedures and treating other patients and teaching time. Please see Assessment and Plan section and the rest of the note for further information on patient assessment and treatment [employer] Consult Note Consult date: 11/23/22 Reason for consult: DTs HPI: Kian Gutierres is a 42 year old male with past medical history of alcohol abuse alcohol withdrawal seizures hypertension and arthritis was admitted on 11/20 with alcohol withdrawal. Patient was found to be in ketoacidosis and had quit drinking few days ago after daily heavy drinking. He was admitted on to the floor. Head CT and other imaging was done which was unremarkable. Patient was treated with benzodiazepine and IV fluids. Over the course of hospitalization his symptoms initially improved. Was also treated with thiamine folic acid. Workup ulcer showed elevated liver enzymes and right upper quadrant ultrasound showed fatty liver disease. He also was thrombocytopenic leukopenic dehydrated and had electrolyte abnormalities. Today patient has been getting worse and was confused agitated uncooperative. Per nursing staff patient was hallucinating and trying to get out of bed and fight the staff. Patient had received 11 mg of Ativan over the course of day without any significant improved. Patient was tachycardic hypertensive. EKG was done which showed sinus tachycardia. Patient was transferred to ICU. Again on my examination patient agitated and using abusive language. He is confused and talking in appropriate. He is able to tell me his name profession and year but unable to provide any meaningful history. When I asked about him direct questions regarding review of systems he answers no to everything. He denied any chest pain shortness of breath nausea vomiting abdominal pain diarrhea constipation headache. Review of Systems Review of Systems: ROS unobtainable: Yes unobtainable due to medical condition PMFSH Past Medical History Medical History Alcohol withdrawal seizure Alcoholism Anxiety Arthritis Depression Hypertension Psoriasis Psoriatic arthritis Surgical History Surgical History No history of previous surgery Family History Family History Other Depression Family history of arthritis Family history of gastrointestinal disorder Hypertensio
--- NOTE | 2022-11-22 13:09 | PC.NURSE ---
Called Father and notified him of move to ICU.
[2022-11-22] MEDS: dexmedeTOMIDine 400 MCG/100 ML 400 MCG/100 ML BAG IV CONT (13:25)
[2022-11-22] MEDS: SODIUM CHLORIDE 0.9% IV 1,000 ML 999 ML IV CONT (13:25)
[2022-11-22] MEDS: KCL 20 MEQ/D5/0.45% SOD CHL 1,000 ML 100 ML IV CONT ×2 (13:53→22:40)
[2022-11-22] MEDS: MAGNESIUM SULF 2 GM/WATER 50ML 2 GM/50 ML BAG IVPB (13:54)
--- NOTE | 2022-11-22 14:17 | PC.NURSE ---
This patient, Kian Gutierres, was received from [ ] on 11/22/22 at 1245. Patient/family oriented to unit policies and routines
--- NOTE | 2022-11-22 14:30 | PC.NURSE ---
[id number] - Patient constantly trying to get up from bed and/or chair. Patient a 2 assist with wheeled walker and gate belt, and falling to the location he was moving to. Dr. Yi called to bedside since it was still to early to give CIWA Ativan. 1mg Ativan ordered. 1030 - Dr. Yi called to bedside for patient crawling out of bed and getting verbally aggressive with staff and wanting to leave. Dr. Yi was able to talk him down and get him to agree to stay for x-rays. Sitter now at bedside. 1125 - 4mg Ativan given per protocol. Patient still trying to climb out of bed and hit nursing staff. Dr. Yi again at bedside, Order to give Haldol originally received, but then Dr. Yi said to hold for now since he was once again to talk him down. 1220 - Patient again trying to get out of bed and head butt staff. Dr. Yi called to bedside, said we could now give the Haldol IM. Minimal to no improvement in agitation. 1240 moved patient with all belongings to ICU 9
[2022-11-22 18:11] LABS: Glucose Point of Care 128 mg/dl (65-105)
[2022-11-22] MEDS: chlordiazePOXIDE (*CRX) 25 MG CAPSULE 50 MG PO (21:25)
[2022-11-23] VITALS (119 sets, daily range): BP systolic 123–165; BP diastolic 92–116; PULSE 71–112; RESP 11–28; TEMP 37.3–38.7; O2SAT 97–100
[2022-11-23] MEDS: dexmedeTOMIDine 400 MCG/100 ML 400 MCG/100 ML BAG 9.28 MCG IV CONT (00:32)
[2022-11-23 00:40] LABS: Glucose Point of Care 121 mg/dl (65-105)
[2022-11-23 03:29] LABS: Basophils Percent Auto 0.8 % (0.2-1.2); Eosinophils Percent Auto 0.4 % (0-4.4); Hematocrit 31.7 % (42.0-52.0); Hemoglobin 10.6 g/dL (14.0-18.0); Immature Granulocyte Absolute 0.02 K/mm3 (0.00-0.031); Immature Granulocyte Percent A 0.8 % (0-0.5); Immature Platelet Fraction Pct 4.3 % (0.9-11.2); Lymphocytes Percent Auto 29.7 % (18.3-44.2); Mean Corpuscular HGB Conc 33.4 g/dl (32-36); Mean Corpuscular Hemoglobin 34.5 pg (26-34); Mean Corpuscular Volume 103.3 fl (80-100); Mean Platelet Volume 9.5 fl (7.4-10.4); Monocytes Absolute Auto 0.5 K/mm3 (0.1-0.6); Neutrophils Absolute Auto 1.1 K/mm3 (1.3-6.7); Neutrophils Percent Auto 45.8 % (45.5-73.1); Platelet Count Result 104 k/mm3 (150-375); Red Blood Count 3.07 M/mm3 (4.6-6.20); Red Cell Distribution Width 13.2 % (11.5-14.5); White Blood Count 2.4 K/mm3 (4.5-10.0)
[2022-11-23 03:37] LABS: Monocytes Percent Auto 22.5 % (2.6-8.5)
[2022-11-23 03:51] LABS: Alanine Aminotransferase 59 U/L (6-50); Albumin Level 3.9 g/dL (3.5-5.1); Alkaline Phosphatase 52 U/L (38-126); Anion Gap 7 mmol/L (8-16); Aspartate Amino Transferase 161 U/L (17-59); Bilirubin,Total 1.5 mg/dL (0.2-1.3); Blood Urea Nitrogen 2 mg/dL (9-20); Calcium 8.5 mg/dL (8.4-10.2); Carbon Dioxide 29 mmol/L (22-30); Chloride 101 mmol/L (98-107); Estimated CRCL calculation 207 ml/min; Estimated Glomerular Filt Rate > 60; Glucose 125 mg/dL (65-110); Sodium 137 mmol/L (137-145)
[2022-11-23] MEDS: chlordiazePOXIDE (*CRX) 25 MG CAPSULE 50 MG PO ×4 (05:26→21:15)
[2022-11-23 06:08] LABS: Glucose Point of Care 139 mg/dl (65-105)
[2022-11-23] MEDS: LABETALOL HCL INJ 100 MG/20 ML VIAL 20 MG IV PUSH (06:49)
[2022-11-23] MEDS: POTASSIUM CHLORIDE 20 MEQ TABLET 40 MEQ PO (08:06)
[2022-11-23] MEDS: CHLORHEXIDINE GLUCONATE 0.12% ORAL RINSE 473 ML BTL (*BKC) 15 ML SWISH/SPIT ×2 (08:07→16:47)
[2022-11-23] MEDS: PANTOPRAZOLE 40 MG TABLET PO (08:08)
[2022-11-23] MEDS: FOLIC ACID 1 MG TABLET PO (08:08)
[2022-11-23] MEDS: THIAMINE HCL 100 MG TABLET PO (08:08)
--- NOTE | 2022-11-23 08:27 | WPDINTPN ---
Progress Note: A&P Assessment and Plan (1) DTs (delirium tremens): Code(s): F10.931 - Alcohol use, unspecified with withdrawal delirium Status: Acute Assessment and Plan: Patient appears to have clinically improved. Continue but try to wean down Precedex infusion. Continue p.r.n. Ativan as supplement Patient is also on scheduled Librium which will be continued IV fluid Continue thiamine and folic acid Will discontinue physical restraints at this time and monitor (2) Electrolyte abnormality: Code(s): E87.8 - Other disorders of electrolyte and fluid balance, not elsewhere classified Status: Acute Assessment and Plan: Will order potassium replacement and continue IV fluids with potassium Plan DVT prophylaxis -SCDs Incentive spirometry Regular diet Subjective Date/time seen: 11/23/22 Patient appears much more calm this morning. He has been on Precedex infusion through the night. He did not receive any additional Ativan through the night. He states he feels better slept okay. He is apologetic that he try to had a staff member yesterday. He denies any pain shortness of breath or anxiety at this time. He states he is hungry and would like to eat food. Patient denies fever, chest pain, shortness of breath, cough, nausea vomiting, abdominal pain,, diarrhea, headache or constipation. All other systems were reviewed and were negative Blood pressure is elevated, low-grade fever, good urine output Review of Systems Review of Systems: All systems reviewed & are unremarkable except as noted in HPI and below (Subjective) Exam Narrative: General: Pt is alert awake and come Physically restrained. Lungs/Chest: Trachea central Clear BS B/L, No crackles or wheezing. Cardiac: RRR. Normal S1 S2. No murmurs Circulation: Pedal pulses are intact and symmetrical. Abdomen: Normal bowel sounds.. Soft. NT. ND. Extremities: No clubbing, cyanosis or edema. Warm : Garcia in place, he appears to have warts on his scrotal skin Neurologic: He is much more calm this morning and moves all 4 extremity to commands, AO x3 Skin: Large left periorbital bruise. The sclera looks clear of le eyeft Objective Data Vital Signs Vital Signs: Vital Signs - 24 hr 11/22/22 09:23 11/22/22 12:00 11/22/22 13:20 Temperature 36.7 C Pulse Rate 117 H 150 H Pulse Rate [Bilateral Radial] Respiratory Rate 24 H 22 H Blood Pressure 117/114 H Pulse Oximetry 96 Oxygen Delivery Room Air 11/22/22 13:00 11/22/22 13:00 11/22/22 14:00 Temperature Pulse Rate 90 87 Pulse Rate [Bilateral Radial] Respiratory Rate Blood Pressure Pulse Oximetry Oxygen Delivery Room Air 11/22/22 12:00 11/22/22 12:00 11/22/22 13:25 Temperature Pulse Rate 130 H 102 H Pulse Rate [Bilateral Radial] Respiratory Rate 24 H Blood Pressure Pulse Oximetry Oxygen Delivery Room Air 11/22/22 15:25 11/22/22 16:00 11/22/22 16:00 Temperature Pulse Rate 88 81 Pulse Rate [Bilateral Radial] 81 Respiratory Rate 18 Blood Pressure 117/114 H Pulse Oximetry Oxygen Delivery 11/22/22 16:00 11/22/22 16:00 11/22/22 18:00 Temperature 36.2 C L Pulse Rate 81 81 85 Pulse Rate [Bilateral Radial] Respiratory Rate 12 12 Blood Pressure 119/90 Pulse Oximetry 98 98 Oxygen Delivery Room Air 11/22/22 19:54 11/22/22 19:54 11/22/22 19:54 Temperature 38.1 C H Pulse Rate 86 86 Pulse Rate [Bilateral Radial] 83 Respiratory Rate 14 14 Blood Pressure 125/93 H Pulse Oximetry 99 99 Oxygen Delivery Room Air 11/22/22 20:27 11/22/22 21:20 11/22/22 20:00 Temperature Pulse Rate 84 85 Pulse Rate [Bilateral Radial] 116 H Respiratory Rate 14 Blood Pressure Pulse Oximetry Oxygen Delivery 11/22/22 22:27 11/22/22 22:29 11/22/22 23:19 Temperature 38.2 C H Pulse Rate 83 83 Pulse Rate [Bilateral Radial] 86 Respiratory Rate 13 Blood
--- NOTE | 2022-11-23 08:39 | PM.IMPN ---
Progress Note: A&P Assessment and Plan (1) Alcohol withdrawal syndrome: Qualifiers: Complication of substance-induced condition: uncomplicated Qualified Code(s): F10.930 - Alcohol use, unspecified with withdrawal, uncomplicated Code(s): F10.939 - Alcohol use, unspecified with withdrawal, unspecified Status: Acute Assessment and Plan: Patient states he has not had any alcohol for >7 days although appears to still be experiencing w/d symptoms. In the ED he was anxious, tremulous, and began hallucinating that improved with Ativan and Haldol. CT brain showing no acute findings except left periorbital swelling. -Care coordination provided information about alcohol rehab. -Started on CIWA protocol. -Started on thiamine and folic acid -Initially was stable but developed hallucinations and worsening withdrawal symptoms. Librium started, moved to ICU 11/22 and Precedex started. Wean Precedex as toelrated. Increase activity Continue PT/OT Continue scheduled Librium, thiamine and Folate. Ativan available prn for elevated CIWA. Appreciate natural sciences manager input (2) DTs (delirium tremens): Code(s): F10.931 - Alcohol use, unspecified with withdrawal delirium Status: Acute Assessment and Plan: As above. Tachycardia related to withdrawal symptoms and this has improved. Still hypertensive. Underlying essential HTN? Will monitor BP for now. Having low grade fevers. CXR clear. UA not consistent with UTI. No other clear source. Atelectasis? Continue to monitor. (3) Falls: Code(s): W19.XXXA - Unspecified fall, initial encounter Status: Acute Assessment and Plan: Patient probably fell related to seizure and/or inebriation resulting in the facial trauma; suspect also multiple falls given that the bruising is different stages. -CT brain showing no acute findings except left periorbital swelling. -Left elbow xray does shows joint effusion but not felt to be infectious. -Left ankle without fracture. -CXR/Rib xray showing no fracture and clear lungs -Pelvic and hip xray negative for fracture -Patient complains of unsteady gait. B12, TSH and folate normal. Could be cerebellar ataxia from his alcohol abuse or related to deconditioning Continue PT/OT (4) Alcohol withdrawal seizure: Code(s): F10.939 - Alcohol use, unspecified with withdrawal, unspecified; R56.9 - Unspecified convulsions Status: Acute Assessment and Plan: Patient likely had seizure(s) at home over the last few days since stopping alcohol. He has evidence of tongue bite and bruising to suggests falls. No anti-epileptic meds at this time. Seizure precautions. Tongue laceration does not look infected Continue Peridex. (5) Alcoholic ketoacidosis: Code(s): E87.29 - Other acidosis Status: Acute Assessment and Plan: Serum bicarb 12 with AG 33. ABG with normal pH but pCO2 17. Lactic was normal. Related to alcoholism. Received 2 amps of sodium bicarbonate in the ED. With IV fluids, his serum bicarb and AG normal now. Resolved (6) Dehydration: Code(s): E86.0 - Dehydration Status: Acute Assessment and Plan: He looked profoundly dry on exam and was aggressively rehydrated. Eating better now. Resolved. (7) Tongue laceration: Code(s): S01.512A - Laceration without foreign body of oral cavity, initial encounter Status: Acute Assessment and Plan: Tongue laceration looks at least a day old. The wound was not gaping and not felt it needed sutures. He was started on clindamycin given his poor dental hygiene. No evidence of infection so clinda stopped. Continue Peridex. (8) Electrolyte abnormality: Code(s): E87.8 - Other disorders of electrolyte and fluid balance, not elsewhere classified Status: Acute Assessment and Plan: Mild hyponatremia, hypoMg and hypokalemia. Na and Mag normal. Potassium low and this wa
[2022-11-23] MEDS: KCL 20 MEQ/D5/0.45% SOD CHL 1,000 ML 100 ML IV CONT ×2 (08:50→18:27)
[2022-11-23] MEDS: POTASSIUM CHLORIDE INJ 40 MEQ in SODIUM CHLORIDE 0.9% IV 500 ML 130 MEQ IVPB (08:53)
[2022-11-23] MEDS: ACETAMINOPHEN 325 MG TABLET 650 MG PO (12:24)
[2022-11-24] VITALS (18 sets, daily range): BP systolic 123–157; BP diastolic 96–112; PULSE 77–132; RESP 15–22; TEMP 36.1–37.9; O2SAT 98–100
[2022-11-24 00:39] LABS: Glucose Point of Care 103 mg/dl (65-105)
[2022-11-24] MEDS: chlordiazePOXIDE (*CRX) 25 MG CAPSULE 50 MG PO ×3 (03:05→21:03)
[2022-11-24 04:29] LABS: Hematocrit 35.9 % (42.0-52.0); Hemoglobin 12.2 g/dL (14.0-18.0); Immature Platelet Fraction Pct 4.7 % (0.9-11.2); Mean Corpuscular Hemoglobin 35.5 pg (26-34); Mean Corpuscular Volume 104.4 fl (80-100); Mean Platelet Volume 9.6 fl (7.4-10.4); Platelet Count Result 164 k/mm3 (150-375); Red Blood Count 3.44 M/mm3 (4.6-6.20); Red Cell Distribution Width 13.2 % (11.5-14.5); White Blood Count 3.4 K/mm3 (4.5-10.0)
[2022-11-24] MEDS: KCL 20 MEQ/D5/0.45% SOD CHL 1,000 ML 100 ML IV CONT (04:29)
[2022-11-24 04:40] LABS: Alanine Aminotransferase 63 U/L (6-50); Albumin Level 4.3 g/dL (3.5-5.1); Alkaline Phosphatase 64 U/L (38-126); Anion Gap 9 mmol/L (8-16); Aspartate Amino Transferase 134 U/L (17-59); Bilirubin,Total 1.2 mg/dL (0.2-1.3); Calcium 8.9 mg/dL (8.4-10.2); Carbon Dioxide 26 mmol/L (22-30); Chloride 100 mmol/L (98-107); Estimated CRCL calculation 201 ml/min; Estimated Glomerular Filt Rate > 60; Glucose 126 mg/dL (65-110); Magnesium 1.9 mg/dL (1.6-2.3); Potassium 3.9 mmol/L (3.4-5.0); Sodium 135 mmol/L (137-145)
[2022-11-24 05:40] LABS: Blood Urea Nitrogen < 2 mg/dL (9-20)
--- NOTE | 2022-11-24 08:18 | WPDINTPN ---
Progress Note: A&P Assessment and Plan (1) DTs (delirium tremens): Code(s): F10.931 - Alcohol use, unspecified with withdrawal delirium Status: Acute Assessment and Plan: Patient appears to have clinically improved. Significant He has been off of precedex infusion for more than 24 hours. He has not required any supplemental Ativan either Continue p.r.n. Ativan as supplement Patient is also on scheduled Librium which will be continued IV fluid will be discontinued today Continue p.o. thiamine and folic acid Will discontinue physical restraints at this time and monitor (2) Electrolyte abnormality: Code(s): E87.8 - Other disorders of electrolyte and fluid balance, not elsewhere classified Status: Acute Assessment and Plan: Potassium level improved after replacement Discontinue IV fluid (3) Fever: Code(s): R50.9 - Fever, unspecified Status: Acute Assessment and Plan: Low-grade fever likely secondary to alcohol withdrawal and may be atelectasis Remove Garcia Incentive spirometry P.r.n. Tylenol Not on any antibiotics at this time (4) Hypertension: Code(s): I10 - Essential (primary) hypertension Status: Acute Assessment and Plan: P.o. metoprolol Plan DVT prophylaxis -SCDs Incentive spirometry Regular diet Discontinue Garcia catheter Physical therapy Transfer out of ICU today Subjective Date/time seen: 11/24/22 States he feels much better and denies any specific complaints this morning. He states he would like to go home and would like to walk around in the room and hallways. Patient denies fever, chest pain, shortness of breath, cough, nausea vomiting, abdominal pain,, diarrhea, headache or constipation. All other systems were reviewed and were negative Blood pressure elevated Low-grade fever Good urine output Tolerating p.o. diet Review of Systems Review of Systems: All systems reviewed & are unremarkable except as noted in HPI and below (Subjective) Exam Narrative: General: Pt is alert awake and callm Lungs/Chest: Trachea central Clear BS B/L, No crackles or wheezing. Cardiac: RRR. Normal S1 S2. No murmurs Circulation: Pedal pulses are intact and symmetrical. Abdomen: Normal bowel sounds.. Soft. NT. ND. Extremities: No clubbing, cyanosis or edema. Warm : Garcia in place, he appears to have warts on his scrotal skin Neurologic: calm with normal speech, sitting on the side of bed, moves all 4 extremity to commands, AO x3 Skin: Large left periorbital bruise. The sclera looks clear of le eyeft Objective Data Vital Signs Vital Signs: Vital Signs - 24 hr 11/23/22 12:24 11/23/22 12:00 11/23/22 10:00 Temperature 38.2 C H Pulse Rate 81 Pulse Rate [Bilateral Radial] 91 Pulse Rate [Monitor] Respiratory Rate Blood Pressure Pulse Oximetry Oxygen Delivery 11/23/22 08:30 11/23/22 08:31 11/23/22 08:45 Temperature 38.0 C H 38.0 C H 38.1 C H Pulse Rate 97 96 87 Pulse Rate [Bilateral Radial] Pulse Rate [Monitor] Respiratory Rate 17 19 16 Blood Pressure 155/104 H Pulse Oximetry 100 100 100 Oxygen Delivery 11/23/22 09:00 11/23/22 09:01 11/23/22 09:15 Temperature 38.1 C H 38.1 C H 38.0 C H Pulse Rate 82 81 87 Pulse Rate [Bilateral Radial] Pulse Rate [Monitor] Respiratory Rate 16 16 15 Blood Pressure 133/95 H Pulse Oximetry 99 99 98 Oxygen Delivery 11/23/22 09:30 11/23/22 09:31 11/23/22 09:45 Temperature 37.9 C H 37.9 C H 37.9 C H Pulse Rate 82 84 81 Pulse Rate [Bilateral Radial] Pulse Rate [Monitor] Respiratory Rate 14 14 14 Blood Pressure 125/95 H Pulse Oximetry 99 100 100 Oxygen Delivery 11/23/22 10:00 11/23/22 10:01 11/23/22 10:15 Temperature 37.9 C H 37.9 C H 37.9 C H Pulse Rate 81 81 88 Pulse Rate [Bilateral Radial] Pulse Rate [Monitor] Respiratory Rate 15 14 16 Blood Pressure 128/95 H Pulse Oximetry 98 98 100 Oxygen Delivery
[2022-11-24] MEDS: CHLORHEXIDINE GLUCONATE 0.12% ORAL RINSE 473 ML BTL (*BKC) 15 ML SWISH/SPIT ×2 (08:40→17:10)
--- NOTE | 2022-11-24 08:54 | PM.IMPN ---
Progress Note: A&P Assessment and Plan (1) Fever: Code(s): R50.9 - Fever, unspecified Status: Acute Assessment and Plan: Etiology unclear. Persistent but patient does not appear septic. BCx NGTD. Recheck CXR and UA. Check LE venous dopplers. Monitor fever curve. (2) Alcohol withdrawal syndrome: Qualifiers: Complication of substance-induced condition: uncomplicated Qualified Code(s): F10.930 - Alcohol use, unspecified with withdrawal, uncomplicated Code(s): F10.939 - Alcohol use, unspecified with withdrawal, unspecified Status: Acute Assessment and Plan: Patient states he has not had any alcohol for 6 days prior to admission but in the ED, he was anxious, tremulous, and began hallucinating that improved with Ativan and Haldol. CT brain showing no acute findings except left periorbital swelling. -Care coordination provided information about alcohol rehab.? -Started on CIWA protocol.? -Started on thiamine and folic acid -Initially was stable but developed hallucinations and worsening withdrawal symptoms. Librium started but had to be moved to ICU 11/22 for Precedex drip. Precedx weaned off today. Still on librium. Increase activity Continue PT/OT Continue scheduled Librium, thiamine and Folate. Ativan available prn for elevated CIWA. Appreciate photographic machine operator input Move to IMU (3) DTs (delirium tremens): Code(s): F10.931 - Alcohol use, unspecified with withdrawal delirium Status: Acute Assessment and Plan: As above. Tachycardia related to withdrawal symptoms and this has improved. Still hypertensive. Underlying essential HTN? metoprolol started. Continue to monitor. (4) Falls: Code(s): W19.XXXA - Unspecified fall, initial encounter Status: Acute Assessment and Plan: Patient probably fell related to seizure and/or inebriation resulting in the facial trauma; suspect also multiple falls given that the bruising is in different stages. -CT brain showing no acute findings except left periorbital swelling. -Left elbow xray does shows joint effusion but not felt to be infectious. -Left ankle without fracture. -CXR/Rib xray showing no fracture and clear lungs -Pelvic and hip xray negative for fracture -Patient complains of unsteady gait. B12, TSH and folate normal. Could be cerebellar ataxia from his alcohol abuse or related to deconditioning Fall precautions Continue PT/OT (5) Alcohol withdrawal seizure: Code(s): F10.939 - Alcohol use, unspecified with withdrawal, unspecified; R56.9 - Unspecified convulsions Status: Acute Assessment and Plan: Patient likely had seizure(s) at home over the last few days since stopping alcohol.? He has evidence of tongue bite and bruising to suggests falls. No anti-epileptic meds at this time. Seizure precautions. Tongue laceration does not look infected Continue Peridex. (6) Alcoholic ketoacidosis: Code(s): E87.29 - Other acidosis Status: Acute Assessment and Plan: Serum bicarb 12 with AG 33. ABG with normal pH but pCO2 17. Lactic was normal. Related to alcoholism. Received 2 amps of sodium bicarbonate in the ED. With IV fluids, his serum bicarb and AG normal now. Resolved (7) Dehydration: Code(s): E86.0 - Dehydration Status: Acute Assessment and Plan: He looked profoundly dry on exam and was aggressively rehydrated.? Eating better now. Resolved. (8) Tongue laceration: Code(s): S01.512A - Laceration without foreign body of oral cavity, initial encounter Status: Acute Assessment and Plan: Tongue laceration looks old. The wound was not gaping and not felt it needed sutures. He was started on clindamycin given his poor dental hygiene. No evidence of infection so clinda stopped. Continue Peridex. (9) Electrolyte abnormality: Code(s): E87.8 - Other disorders of electrolyte and fluid balance, not elsewhere classified
[2022-11-24] MEDS: PANTOPRAZOLE 40 MG TABLET PO (08:59)
[2022-11-24] MEDS: METOPROLOL TARTRATE 25 MG TABLET PO ×2 (08:59→21:03)
[2022-11-24] MEDS: THIAMINE HCL 100 MG TABLET PO (08:59)
[2022-11-24] MEDS: FOLIC ACID 1 MG TABLET PO (09:00)
--- NOTE | 2022-11-24 14:41 | PC.NURSE ---
This patient, Kian Gutierres, was transferred to [facility] on 11/24/22 at 1441. Personal belongings sent with patient. Report given to [ ]. Appropriate documentation sent with patient.
[2022-11-24 14:50] LABS: Appearance Urine Clear (Clear); Bacteria Urine None Seen /hpf; Bilirubin Urine 1+ (Negative); Blood Urine Negative (Negative); Color Urine Dark Yellow (Yellow); Glucose Urine UA Negative (Negative); Ketones Urine Negative (Negative); Leukocyte Esterase Ur Trace LEU/UL (Negative); Nitrate Urine Negative (Negative); Non Pathogenic Casts 0-2; Protein Urine Negative (Negative); RBC Urine 0-2 /hpf (0-2); Specific Grav Ur 1.015 (1.001-1.035); Squamous Epithelial Cell Urine None seen /hpf (Few); WBC Urine 0-5 /hpf
[2022-11-24 14:52] LABS: Add Urine Microscopic? YES
[2022-11-24 19:02] LABS: Glucose Point of Care 109 mg/dl (65-105)
[2022-11-24 19:54] LABS: Glucose Point of Care 118 mg/dl (65-105)
--- NOTE | 2022-11-24 20:04 | PC.NURSE ---
Pt becoming upset after setting off bed alarm and trying to get up alone. Pt stated that he wanted to walk and RN offered to walk him in a little bit, but then pt complained about how everyone wakes him up for labs, blood pressures, blood sugars. He states he cannot sleep with everyone waking him up every 30 minutes, and it's making [him] crazy. Explained our schedule of care and that he is still in critical care environment. Pt and RN compromised for pt to refuse midnight assessment/vitals and we would resume at 0400 so pt can get some rest. RN stated she would still check on pt to ensure his safety overnight but would not wake him. Pt agreed but still unhappy.
[2022-11-25] VITALS (9 sets, daily range): BP systolic 100–138; BP diastolic 71–112; PULSE 74–109; RESP 16–20; TEMP 36.4–37.1; O2SAT 100
--- NOTE | 2022-11-25 01:40 | PC.NURSE ---
Patient set bed alarm off by getting up to bathroom despite having urinal at bedside. Pt urinated entire way onto floor. On return to bed patient ignores Jolene Dugan's offers and requests to change pants and help him clean up until saying No and requesting to be left alone. This nurse asked if pants could please be removed and patient states please, please just leave me alone . This nurse empathizes but asks again due to pants being soiled with urine. Patient states they will dry . This nurse states no one should be sleeping in wet pants. Patient states he doesn't have anymore underwear. This nurse offers a new pair of pants to wear and patient repeats raising voice, this is my only pair of underwear . This nurse also requests he use his call light when wanting to get up and to use his urinal next time he needs to pee. Patient states I didn't know I could use that. No one told me , despite having used it two times prior to urinate. Urine cleaned up from floor and housekeeping called to mop.
[2022-11-25] MEDS: chlordiazePOXIDE (*CRX) 25 MG CAPSULE 50 MG PO (04:23)
[2022-11-25 05:09] LABS: Mean Corpuscular HGB Conc 32.6 g/dl (32-36); Mean Corpuscular Volume 107.5 fl (80-100); Mean Platelet Volume 11.2 fl (7.4-10.4); Platelet Count Result 180 k/mm3 (150-375); Red Cell Distribution Width 13.4 % (11.5-14.5); White Blood Count 4.5 K/mm3 (4.5-10.0)
[2022-11-25 05:22] LABS: Alanine Aminotransferase 84 U/L (6-50); Alkaline Phosphatase 68 U/L (38-126); Anion Gap 11 mmol/L (8-16); Aspartate Amino Transferase 196 U/L (17-59); Bilirubin,Total 1.4 mg/dL (0.2-1.3); Blood Urea Nitrogen 5 mg/dL (9-20); Calcium 9.9 mg/dL (8.4-10.2); Carbon Dioxide 30 mmol/L (22-30); Chloride 98 mmol/L (98-107); Estimated CRCL calculation 164 ml/min; Estimated Glomerular Filt Rate > 60; Glucose 106 mg/dL (65-110); Magnesium 2.1 mg/dL (1.6-2.3); Potassium 3.7 mmol/L (3.4-5.0); Sodium 139 mmol/L (137-145)
[2022-11-25 07:30] LABS: Glucose Point of Care 98 mg/dl (65-105)
[2022-11-25 07:59] LABS: Methyl Alcohol Level None Detected (None Detected)
[2022-11-25] MEDS: THIAMINE HCL 100 MG TABLET PO (08:20)
[2022-11-25] MEDS: METOPROLOL TARTRATE 25 MG TABLET PO (08:20)
[2022-11-25] MEDS: PANTOPRAZOLE 40 MG TABLET PO (08:20)
[2022-11-25] MEDS: CHLORHEXIDINE GLUCONATE 0.12% ORAL RINSE 473 ML BTL (*BKC) 15 ML SWISH/SPIT (08:20)
[2022-11-25] MEDS: FOLIC ACID 1 MG TABLET PO (08:20)
[2022-11-25 12:39] LABS: Glucose Point of Care 137 mg/dl (65-105)
--- NOTE | 2022-11-25 12:50 | PM.DS ---
DS: Admitting Diagnosis Discharge Date 11/25/22 Admitting Diagnosis Alcohol withdrawal seizure DS: Discharge Diagnosis Discharge Diagnosis (1) Fever: Code(s): R50.9 - Fever, unspecified Status: Acute (2) Alcohol withdrawal syndrome: Qualifiers: Complication of substance-induced condition: uncomplicated Qualified Code(s): F10.930 - Alcohol use, unspecified with withdrawal, uncomplicated Code(s): F10.939 - Alcohol use, unspecified with withdrawal, unspecified Status: Acute (3) DTs (delirium tremens): Code(s): F10.931 - Alcohol use, unspecified with withdrawal delirium Status: Acute (4) Falls: Code(s): W19.XXXA - Unspecified fall, initial encounter Status: Acute (5) Alcohol withdrawal seizure: Code(s): F10.939 - Alcohol use, unspecified with withdrawal, unspecified; R56.9 - Unspecified convulsions Status: Acute (6) Alcoholic ketoacidosis: Code(s): E87.29 - Other acidosis Status: Acute (7) Dehydration: Code(s): E86.0 - Dehydration Status: Acute (8) Tongue laceration: Code(s): S01.512A - Laceration without foreign body of oral cavity, initial encounter Status: Acute (9) Electrolyte abnormality: Code(s): E87.8 - Other disorders of electrolyte and fluid balance, not elsewhere classified Status: Acute (10) Macrocytic anemia: Code(s): D53.9 - Nutritional anemia, unspecified Status: Acute (11) Thrombocytopenia: Code(s): D69.6 - Thrombocytopenia, unspecified Status: Acute (12) Transaminitis: Code(s): R74.01 - Elevation of levels of liver transaminase levels Status: Acute DS: Summary Hospital Course Reason for hospitalization: 42yo male with longstanding history of alcohol abuse, alcohol withdrawal seizures, hypertension, and psoriatic arthritis who presented to the emergency department via his own private vehicle from home for evaluation of alcohol withdrawal symptoms. Please see H&P for details. Hospital Course: Patient stated that he has not had any alcohol for 6 days prior to admission but in the ED, he was anxious, tremulous, and began hallucinating that improved with Ativan and Haldol. CT brain showing no acute findings except left periorbital swelling. Care coordination provided information about alcohol rehab.?He was started on CIWA protocol.?He was started on thiamine and folic acid. He was initially stable but developed hallucinations and worsening withdrawal symptoms. Librium started but had to be moved to ICU 11/22 for Precedex drip. He had improvement. Precedex weaned off. he continued to do well and wee able to wean Librium as well. With the DTs, patient was tachycardia felt related to withdrawal symptoms. EKG confirmed sinus tachycardia. Also with HTN and he may have underlying essential HTN. Metoprolol started with improvement in his symptoms. Patient likely had alcohol withdrawal seizure(s) at home over the last few days since stopping alcohol.?No seizure activity during his hospitalization. He had evidence of tongue laceration and bruising to suggests falls. No anti-epileptic meds at this time. Seizure precautions instituted. Tongue laceration did not look infected and appeared to be an old trauma. The wound was not gaping and not felt it needed sutures. He was started on clindamycin given his poor dental hygiene. No evidence of infection so clinda stopped and he was treated with Peridex. Patient probably fell multiple times prior to admission related to seizure and/or inebriation resulting in the facial trauma; suspect also multiple falls given that the bruising is in different stages. CT brain showing no acute findings except left periorbital swelling. Left elbow xray does shows joint effusion but not felt to be infectious. Left ankle without fracture. CXR/Rib xray showing no fracture and clear lungs. Pelvic and hip xray negative for fracture. Patient wa
[2022-11-25] MEDS: chlordiazePOXIDE (*CRX) 25 MG CAPSULE PO (14:31)
== END 2022-11-25 14:45 | disposition home or self-care (01) | DRG 775 ==
LOC: ANHED 13:07 → ANH3MEDSUR 14:15 → ANHICU 18:56 → ANHIMU 11-21 00:51 → ANHICU 11-23 08:30 → ANHIMU 11-25 13:08 → ANHICU 11-27 15:02 → ANHIMU 11-27 15:02
PROVIDERS: Internal Medicine; Physician Assistant; Admitting Provider Internal Medicine; Emergency Provider Family Medicine; PCP Family Medicine; Visit Provider Internal Medicine
DX: F10.131 Alcohol abuse with withdrawal delirium (principal); E87.29 Other acidosis; D69.6 Thrombocytopenia, unspecified; E87.8 Other disorders of electrolyte and fluid balance, not elsewhere classified; L40.50 Arthropathic psoriasis, unspecified; R56.9 Unspecified convulsions; S00.12XA Contusion of left eyelid and periocular area, initial encounter; K70.9 Alcoholic liver disease, unspecified; K70.10 Alcoholic hepatitis without ascites; E87.1 Hypo-osmolality and hyponatremia; D53.9 Nutritional anemia, unspecified; I10 Essential (primary) hypertension; S01.512A Laceration without foreign body of oral cavity, initial encounter; W19.XXXA Unspecified fall, initial encounter; F41.9 Anxiety disorder, unspecified; F32.A Depression, unspecified; E86.0 Dehydration; E87.6 Hypokalemia; Z87.891 Personal history of nicotine dependence
CPT/HCPCS: 36415; 36600; 70450; 71046; 71100; 73070; 73521; 73600; 76705; 80048; 80053; 80076; 80307; 81001; 82375; 82607; 82728; 82746; 82805; 82948; 83050; 83540; 83550; 83605; 83690; 83735; 84443; 84600; 85025; 85027; 85055; 85610; 87040; 93005; 93970; 96361; 96365; 96366; 96367; 96374; 96375; 96376; 97162; 97165; 99285; A4248; A9270; C9113; G0378; G0379; J1630; J2060; J2405; J3411; J3475; J3480; J7030; J7040; J7042

== ENCOUNTER 2022-12-21 05:17 | Emergency (ER) | payer OTHER, SELFPAY ==
[2022-12-21 05:17] VITALS: BP 154/106; PULSE 92; RESP 14; TEMP 36.6; O2SAT 97
[2022-12-21 05:30] VITALS: BP 154/106; PULSE 93; RESP 15; O2SAT 100
--- NOTE | 2022-12-21 06:09 | ED.GENADULT ---
HPI - General Adult General Chief complaint: Alcohol Stated complaint: alcohol Time Seen by Provider: 12/21/22 05:31 History of Present Illness HPI narrative: This is a 42-year-old alcoholic presenting ED requesting rehab for his withdrawal. Patient drank earlier today. He has no symptoms at this time. He said he called chest not to get help and said he was withdrawing the told him to come to the hospital. He was admitted to our hospital month ago for withdrawal. At this time he has no symptoms. Related Data Home Medications Medication Instructions Recorded Confirmed ixekizumab 80 mg/mL subcutaneous 80 mg subcut MONTHLY 11/21/22 11/21/22 auto-injector (Taltz Autoinjector) Allergies Allergy/AdvReac Type Severity Reaction Status Date / Time Penicillins Allergy Unknown Rash Verified 08/31/21 05:53 [facility] Past Medical History Medical History (Updated 12/21/22 @ 06:14 by Xiang Blanco MD) Alcohol withdrawal seizure Alcoholism Anxiety Arthritis Depression Hypertension Psoriasis Psoriatic arthritis Surgical History Surgical History No history of previous surgery Family History Family History Other Depression Family history of arthritis Family history of gastrointestinal disorder Hypertension Social History Social History Social History: Surrogate medical decision maker: Cipriano Gutierres, father. Code status: Full code. Smoking packs per day: 0.5 Smoking cigarettes per day: 10.0 Years smoked: 15 Smoking pack-years: 7.50 Smoking status: Former smoker Tobacco type: cigarettes Smoking end date: 10/07/22 Alcohol intake: former Drinks per week: 28 Alcohol use details: Half to an entire 1/5 of vodka a day. Substance use: never Lack of Transportation: No Lack of Food: Never True Current Housing: I Have Housing Concerned About Future Housing: Decline to Answer Difficulty Paying Gas/Electric Bills: Decline to Answer Difficulty Paying for Meds: Decline to Answer Currently Unemployed: Decline to Answer Education: Decline to Answer Difficulty w/ Childcare or Family Care: Decline to Answer Additional living arrangements comments: Patient lives in his own house in [place]. Additional occupation/education comments: Currently unemployed. Spiritual care concerns: No Exam Narrative: APPEARANCE: No apparent distress. Patient is intoxicated but A&O x3 and able hold conversation Head: atraumatic. EYES: EOMI, NOSE: Atraumatic NECK: Trachea midline RESPIRATORY: No increased rate of breathing clear to auscultation CARDIOVASCULAR: RRR, ABDOMINAL: Non-distended, soft no guarding rebound MUSCULOSKELETAl: No obvious deformities NEURO: Alert. Moving 4/4 extremities SKIN:: Warm, dry. Normal color PSYCHIATRIC: Normal affect Course Vital Signs Vital signs: Vital Signs Temperature 97.8 F 12/21/22 05:17 Pulse Rate 92 12/21/22 05:17 Respiratory Rate 14 12/21/22 05:17 Blood Pressure 154/106 H 12/21/22 05:17 Pulse Oximetry 97 12/21/22 05:17 Oxygen Delivery Room Air 12/21/22 05:17 Temperature 97.8 F 12/21/22 05:17 Pulse Rate 93 12/21/22 05:30 Respiratory Rate 15 12/21/22 05:30 Blood Pressure 154/106 H 12/21/22 05:30 Pulse Oximetry 100 12/21/22 05:30 Oxygen Delivery Room Air 12/21/22 05:17 Medical Decision Making MDM Narrative Medical decision making narrative: -Presentation: 42-year-old male requesting detox from alcohol. He is currently intoxicated. He has no symptoms of alcohol withdrawal this time. -DDX includes but is not limited to: polysubstance use disorder, EtOH -Co-morbidities complicating care: alcohol use disorder, psoriatic arthritis, hypertension -Social determinants of health: patient works odd construction jobs, lives in a house hi
[2022-12-21 06:27] VITALS: BP 137/96; PULSE 90; RESP 20; TEMP 36.4; O2SAT 97
== END 2022-12-21 06:28 | disposition home or self-care (01) ==
PROVIDERS: Emergency Provider Emergency Medicine; PCP Family Medicine
DX: F10.229 Alcohol dependence with intoxication, unspecified (principal); I10 Essential (primary) hypertension; Z87.891 Personal history of nicotine dependence
CPT/HCPCS: 99281

== ENCOUNTER 2024-10-31 13:51 | Emergency (ER) | payer OTHER, SELFPAY ==
[2024-10-31 13:58] VITALS: BP 149/97; PULSE 70; RESP 16; RESP 18; TEMP 36.6; O2SAT 100
--- NOTE | 2024-10-31 14:05 | ECG_ITS ---
Test Date: 2024-10-31 14:07:35 Measurements Intervals [place] Rate: 72 P: 22 [place]: 161 QRS: 5 QRSD: 108 T: 32 QT: 382 QTc: 418 Interpretive Statements SINUS RHYTHM INCOMPLETE RIGHT BUNDLE BRANCH BLOCK [90+ ms QRS DURATION, TERMINAL R IN V1/V2, 40+ ms S IN I/aVL/V4/V5/V6] SEPTAL MYOCARDIAL INFARCTION , OF INDETERMINATE AGE [40+ ms Q WAVE IN V1/V2] No previous ECG available for comparison Electronically Signed On 11-01-2024 16:00:04 CDT by Carola Elizabeth
[2024-10-31 14:30] VITALS: BP 118/80; PULSE 77; RESP 12; TEMP 36.6; O2SAT 100
--- NOTE | 2024-10-31 14:59 | ED_ITS ---
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 Patient reported there was a power cord was connected to the sink by accident, patient touches seeing then collapse, no loss of consciousness, complaining of left lower back pain and hip pain. Patient was able to drive himself to the ED. Denies loss of consciousness, head injury or neck injury. History of psoriasis. Related Data Home Medications ?Medication ?Instructions ?Recorded ?Confirmed ?Last Taken ?Type ixekizumab 80 mg/mL subcutaneous 80 mg subcut MONTHLY 11/21/22 09/28/24 09/29/22 History auto-injector (Taltz Autoinjector) prednisone 10 mg tablet 10 mg PO .PRN PRN 06/11/24 09/28/24 Unknown History triamcinolone acetonide 0.1 % applic topical 09/14/24 09/28/24 Unknown History topical cream Allergies Allergy/AdvReac Type Severity Reaction Status Date / Time Penicillins Allergy Unknown Rash Verified 09/28/24 09:39 Review of Systems 2 Review of Systems: All systems reviewed & are unremarkable except as noted in HPI and below PMFSH Past Medical History Medical History Alcohol withdrawal seizure Alcoholism Arthritis Anxiety Depression Psoriasis Psoriatic arthritis Hypertension Surgical History Surgical History No history of previous surgery Family History Family History Mother Hypertension Other Depression Family history of arthritis Family history of gastrointestinal disorder Social History Social History Social History: Surrogate medical decision maker: Cipriano Gutierres, father. Code status: Full code. Smoking packs per day: 0.5 Smoking cigarettes per day: 10.0 Years smoked: 15 Smoking pack-years: 7.50 Smoking status: Current every day smoker Tobacco type: cigarettes Smoking end date: 10/07/22 Alcohol intake: former Drinks per week: 28 Alcohol use details: Half to an entire 1/5 of vodka a day. Substance use: never Do You Feel Safe in your Home?: Yes Lack of Transportation: No Lack of Food: Never True Current Housing: I Have Housing Concerned About Future Housing: No Difficulty Paying Gas/Electric Bills: No Difficulty Paying for Meds: No Currently Unemployed: No Education: High School Diploma/GED Difficulty w/ Childcare or Family Care: No Additional living arrangements comments: Patient lives in his own house in [place]. Additional occupation/education comments: Currently unemployed. Spiritual care concerns: No Exam 2 Narrative: General appearance: Well-developed, well-nourished Skin: Normal color Head: Normocephalic, nontraumatic Eyes: Clear conjunctiva ENT: Oropharynx normal, ears normal, nose normal Neck: Supple, nontender Chest and respiratory: Airway patent, no respiratory distress, no accessory muscle use Heart: Regular rate/rhythm Abdomen: Soft, nontender, no organomegaly, quiet bowel sounds Vascular: Normal peripheral pulses, normal capillary refill. Musculoskeletal: Normal range of motion, nontender back Neurologic: Alert and oriented ?3, [employer] is normal as tested, no gross motor deficit Course Vital Signs Vital signs: Vital Signs Temperature 36.6 C 10/31/24 13:58 Pulse Rate 70 10/31/24 13:58 Respiratory Rate 18 10/31/24 13:58 Blood Pressure 149/97 H 10/31/24 13:58 Pulse Oximetry 100 10/31/24 13:58 Oxygen Delivery Room Air 10/31/24 13:58 Temperature 36.6 C 10/31/24 13:58 Pulse Rate 70 10/31/24 13:58 Respiratory Rate 16 10/31/24 13:58 Blood Pressure 149/97 H 10/31/24 13:58 Pulse Oximetry 100 10/31/24 13:58 Oxygen Delivery Room Air 10/31/24 13:58 Medical Decision Making Vital Signs Vital Signs: Vital Signs Temperature 36.6 C 10/31/24 13:58 Pulse Rate 70 10/31/24 13:58 Respiratory Rate 18 10/31/24 13:58 Blood Pressure 149/97 H 10/31/24 13:58 Pulse Oximetry 100 10/31/24 13:58 Oxygen Delivery Room Air 10/31/24 13:58 Temperature 36.6 C 10/31/24 13:58 Pulse Rate 70 10/31/24 13:58 Respiratory Rate 16 10/31/24 13:58 Blood Pressure 149/97 H 10/31/24 13:58 Pulse Oximetry 100 10/31/24 13:58 Oxygen Delivery Room Air 10/31/24 13:58 Lab Data 10/31/24 15:10 10/31/24 15:10 Labs: Lab Results 10/31/24 10/31/24 Range/Units 15:10 15:13 WBC 7.5 (4.5-10.0) K/mm3 RBC 4.31 L (4.6-6.20) M/mm3 Hgb 13.7 L (14.0-18.0) g/dL Hct 42.5 (42.0-52.0) % MCV 98.6 (80-100) fl MCH 31.8 (26-34) pg MCHC 32.2 (32-36) g/dl RDW 13.5 (11.5-14.5) % Plt Count 181 (150-375) k/mm3 MPV 10.7 H (7.4-10.4) fl Immature Gran % (Auto) 0.4 (0-0.5) % Neut % (Auto) 58.7 (45.5-73.1) % Lymph % (Auto) 27.9 (18.3-44.2) % Flagler % (Auto) 10.5 H (2.6-8.5) % Eos % (Auto) 2.0 (0-4.4) % Baso % (Auto) 0.5 (0.2-1.2) % Lymph # (Auto) 2.10 (0.9-3.2) K/mm3 Flagler # (Auto) 0.8 H (0.1-0.6) K/mm3 Eos # (Auto) 0.2 (0-0.3) K/mm3 Baso # (Auto) 0.0 (0.0-0.1) K/mm3 Abs Immat Gran (auto) 0.03 (0.00-0.031) K/mm3 Absolute Neuts (auto) 4.4 (1.3-6.7) K/mm3 Absolute Nucleated RBC 0.000 (0.0-0.012) K/mm3 Nucleated RBC % 0.0 (0.0-0.2) % Sodium 140 (137-145) mmol/L Potassium 4.1 (3.4-5.0) mmol/L Chloride 102 (98-107) mmol/L Carbon Dioxide 31 H (22-30) mmol/L Anion Gap 7 (4-12) mmol/L BUN 15 D (9-20) mg/dL Creatinine 0.73 (0.7-1.3) mg/dL Estim Creat Clear Calc 127 ml/min Estimated GFR > 60 (59 - ) Glucose 89 (65-110) mg/dL Calcium 9.3 (8.4-10.2) mg/dL Total Bilirubin 0.6 (0.2-1.3) mg/dL AST 30 (17-59) U/L ALT 24 (6-50) U/L Alkaline Phosphatase 67 (38-126) U/L Total Creatine Kinase 263 H (55-170) U/L Total Protein 8.0 (6.3-8.2) g/dL Albumin 4.7 (3.5-5.1) g/dL Urine Color Yellow (Yellow) Urine Appearance Clear (Clear) Urine pH 6.5 (5.0-9.0) Ur Specific Lavina 1.016 (1.001-1.035) Urine Protein Negative (Negative) mg/dL Urine Glucose (UA) Negative (Negative) mg/dL Urine Ketones Negative (Negative) mg/dL Ur Blood (Man) Negative (Negative) Urine Nitrate Negative (Negative) Urine Bilirubin Negative (Negative) Urine Urobilinogen 1.0 (<2.0) mg/dL Leukocyte Esterase Rfl Negative (Negative) SAILAJA/UL Discharge Plan Discharge Clinical Impression: Electrocution and nonfatal effects of electric current Patient Disposition: Home Condition: Improved Additional Instructions: Return if symptoms are worsening , call your family physician for appointment, take Tylenol as as needed for aches and pain, continue home medications. Patient Language: Khmer Prescriptions: No Action prednisone 10 mg tablet 10 mg PO .PRN PRN triamcinolone acetonide 0.1 % cream topical Taltz Autoinjector 80 mg/mL auto-injector 80 mg SUBCUT MONTHLY Follow-up/Referrals: Loi Young MD [Physician] - Stand Alone Forms: Work/School Release IP
[2024-10-31 15:16] LABS: Basophils Percent Auto 0.5 % (0.2-1.2); Eosinophils Absolute Auto 0.2 K/mm3 (0-0.3); Hematocrit 42.5 % (42.0-52.0); Hemoglobin 13.7 g/dL (14.0-18.0); Immature Granulocyte Absolute 0.03 K/mm3 (0.00-0.031); Immature Granulocyte Percent A 0.4 % (0-0.5); Lymphocytes Percent Auto 27.9 % (18.3-44.2); Mean Corpuscular HGB Conc 32.2 g/dl (32-36); Mean Corpuscular Hemoglobin 31.8 pg (26-34); Mean Corpuscular Volume 98.6 fl (80-100); Mean Platelet Volume 10.7 fl (7.4-10.4); Monocytes Absolute Auto 0.8 K/mm3 (0.1-0.6); Monocytes Percent Auto 10.5 % (2.6-8.5); Neutrophils Absolute Auto 4.4 K/mm3 (1.3-6.7); Neutrophils Percent Auto 58.7 % (45.5-73.1); Platelet Count Result 181 k/mm3 (150-375); Red Blood Count 4.31 M/mm3 (4.6-6.20); Red Cell Distribution Width 13.5 % (11.5-14.5); White Blood Count 7.5 K/mm3 (4.5-10.0)
[2024-10-31 15:20] LABS: Add Urine Microscopic? NO; Appearance Urine Clear (Clear); Bilirubin Urine Negative (Negative); Blood Urine Negative (Negative); Color Urine Yellow (Yellow); Glucose Urine UA Negative (Negative); Ketones Urine Negative (Negative); Leukocyte Esterase Ur Negative LEU/UL (Negative); Nitrate Urine Negative (Negative); Protein Urine Negative (Negative); Specific Grav Ur 1.016 (1.001-1.035); pH Urine 6.5 (5.0-9.0)
[2024-10-31 15:26] LABS: Alanine Aminotransferase 24 U/L (6-50); Albumin Level 4.7 g/dL (3.5-5.1); Alkaline Phosphatase 67 U/L (38-126); Anion Gap 7 mmol/L (4-12); Aspartate Amino Transferase 30 U/L (17-59); Bilirubin,Total 0.6 mg/dL (0.2-1.3); Blood Urea Nitrogen 15 mg/dL (9-20); Calcium 9.3 mg/dL (8.4-10.2); Carbon Dioxide 31 mmol/L (22-30); Chloride 102 mmol/L (98-107); Creatine Kinase 263 U/L (55-170); Estimated CRCL calculation 127 ml/min; Estimated Glomerular Filt Rate > 60; Glucose 89 mg/dL (65-110); Potassium 4.1 mmol/L (3.4-5.0); Sodium 140 mmol/L (137-145)
[2024-10-31 15:30] VITALS: BP 120/68; PULSE 68; RESP 16; TEMP 36.6; O2SAT 100
[2024-10-31 16:30] VITALS: BP 118/68; PULSE 70; RESP 16; TEMP 36.6; O2SAT 98
--- OUTSIDE RECORDS SUMMARY | 2024-10-31 16:38 | XMS_ITS | Clinical Summary ---
Author Organization [facility] Address [address] [place] [address] Care Team Providers Care Solution Professional Name Role Phone Katerin Dela Cruz Primary Care Pro vider Source Comments [facility],non-owned Affiliates and Associated Physician Practices is amultiple site organization consisting of ambulatory clinics and hospital sitesin [place], [place], [place] and [place]. This disclosure is being madepursuant to the Care Everywhere program and may not contain all information available regarding this patient. Last updated 18.[facility] Allergies Active Allergy Reactions Criticality Noted Date Comments Penicillin G Other Low 09/21/2013 Family history report uncertain of reaction Penicillins Rash Medium 06/19/2017 Medications * Be aware that medications may not be up to date on this document. Alwaysverify current medications with the patient. adalimumab (HUMIRA PEN) 40 MG/0.8ML injectionIndic ations:Psoriat ic Arthritis Inject 0.8 mL subcutaneously every 14 days Reasons: Psoriasis associated with Arthritis 6 Pen 1 8 Active Additional Information Patient not taking.Reported on 08/12/2020 cyclobenzaprin e (FLEXERIL) 10 MG tablet TK 1 T PO TID PRF MUSCLE SPASMS 0 8 Active meloxicam (MOBIC) 15 MG tablet Take 1 tablet by mouth once daily 30 tablet 3 8 Active Additional Information Patient not taking.Reported on 08/12/2020 clobetasol (TEMOVATE) 0.05 % ointmentIndica tions:Other psoriasis Apply to affected areas on body twice daily. 30 days supply. 60 g 3 1 Active calcipotriene (DOVONEX) 0.005 % creamIndicatio ns:Other psoriasis Apply to affected area twice daily. 60 g 3 1 Active ergocalciferol (DRISDOL) 1.25 MG (34804 UT) capsule TAKE 1 CAPSULE BY MOUTH ONCE A WEEK 0 Active Metoprolol Tartrate 75 MG TABS 0 Active Active Problems Problem Noted Date Diagnosed Date Vitamin D deficiency 08/16/2020 Other psoriasis 08/12/2020 Assessment & Plan (08/12/2020 4:41 PM WORKFORCE MANAGER): ~20% BSA, + nail involvement, +Psor arthritis (following with Rheumatology) - On Infliximab per Rheumatology - Start Clobetasol ointment BID to affected areas - Start Calcipotriene cream BID to affected areas - Advised patient to follow up with [facility] regarding Humira PA approval (note in system mentions PA approved from their side), a spatient has done well on Humira prior - Obtain Vitamin D level Family history of celiac disease 08/12/2020 Assessment & Plan (08/12/2020 4:38 PM WORKFORCE MANAGER): Patient interested in checking if gluten free diet is better for him due to family history of Celiac disease in half-brother - Obtain celiac disease panel Psoriasis 03/24/2018 Encounter for therapeutic drug monitoring 2017 Alcohol withdrawal seizure without complication 03/16/2018 Overview (08/12/2020): Last Assessment & Plan: Last drink either or Saturday; hx changed b/w what he told ED provider and what he told me -seizure x 1 around 2 am on 03/16 -hx of another withdrawal seizure approx 1 year ago -CIWA prototocol with ativan 2mg every 20 mins PRN for any CIWA >8 -diazepam unavailable due to shortage -thiamine, multivitamin w/ folate -LR 100 cc/hr HTN (hypertension) 03/16/2018 Overview (08/12/2020): Overview: Pt reports hx of hypertension not on any medications Last Assessment & Plan: BP elevated to 160/90's but in setting of acute alcohol withdrawal -no home meds -will continue to monitor BP while treating acute withdrawal Alcoholism 02/10/2018 Other fdc (current) drug therapy 7 Encounter for long-term (cur rent) use of high-risk medication 07/29/2014 Adverse drug effect 10/05/2013 Other specified abnormal findings of blood chemi stry 10/05/2013 Arthropathic psoriasis 10/05/2013 Abnormal LFTs 10/05/2013 Arthropathic psoriasis, unspecified 10/05/2013 Overview (08/12/2020): Last Assessment & Plan: On Humira Arthralgia 09/21/2013 Family History Medical History Relation Name Comments None Known Brother Arthritis - Osteo Father Status: Al angelica Inflammatory Bowel Disease Father None Known Maternal Aunt CVA Maternal Grandfather Heart Disease Maternal Grandmother None Known Maternal Uncle Hypertension Mother Status: Alive Crohn's Disease Other None Known Paternal Aunt None Known Paternal Grandfather None Known Paternal Grandmother None Known Paternal Uncle None Known Sister Asthma Neg Hx Cancer - Breast Neg Hx Cancer - Other Neg Hx Cancer - Skin, Melanoma Neg Hx Cancer - Skin, Non Melanoma Neg Hx Eczema Neg Hx Hemophilia Neg Hx Psoriasis Neg Hx Relation Name Status Comments Brother Father Maternal Aunt Maternal Grandfather Maternal Grandmother Maternal Uncle Mother Other Paternal Aunt Paternal Grandfather Paternal Grandmother Paternal Uncle Sister Social History Tobacco Use Types Packs/Day Years Used Date Smoking Tobacco: Every Day Cigarettes Smokeless Tobacco: Never Alcohol Use Standard Drinks/Week Comments Yes 20 (1 standard drink = 0.6 oz pu re alcohol) Sex and Gender Information Value Date Recorded Sex Assigned at Not on file Legal Sex Male 5:12 PM WORKFORCE MANAGER Gender Identity Not on file Sexual Orientation Not on file Last Filed Vital Signs Vital Sign Reading Time Taken Comments Blood Pressure 130/70 05/19/2018 4:51 PM WORKFORCE MANAGER Pulse 102 05/19/2018 4:51 PM WORKFORCE MANAGER Temperature 37.4 C (99.3 F) 03/24/2018 1:37 PM CDT Respiratory Rate 16 06/19/2017 11:00 PM WORKFORCE MANAGER Oxygen Saturation 98% 05/19/2018 4:51 PM WORKFORCE MANAGER Inhaled Oxygen Concentration - - Weight 95.9 kg (211 lb 6.4 oz) 05/19/2018 4:51 P M WORKFORCE MANAGER Height 185.4 cm (6' 1 ) 01/30/2018 9:54 AM CDT Body Mass Index 27.89 01/30/2018 9:54 AM CDT Plan of Treatment Health Maintenance Due Date Last Done Comments LIPID TESTING 1981 HIV SCREENING 02/07/1996 DTAP/TDAP/TD VACCINES (1 - Tdap) 02/07/2000 HEPATITIS B VACCINE (1 of 3 - 19+ 3-dose series) 02/07/2000 PNEUMOCOCCAL VACCINE (1 of 2 - PCV) 02/07/2000 COVID-19 VACCINE (1 - 2023-2 5 season) 2024 DEPRESSION SCREENING 07/01/2024 INFLUENZA VACCINE (Season Ended) 2025 ZOSTER VACCINE (1 of 2) 2031 HEPATITIS C SCREENING Completed 09/21/2013 HIB VACCINE Aged Out No longer eligi ble based on patient's age to complete this topic HPV VACCINE Aged Out No longer eligi ble based on patient's age to complete this topic MENINGOCOCCAL (Group B) VACC INE SHARED DECISION-MAKING Aged Out No longer eligibl e based on patient's age to complete this topic MENINGOCOCCAL GROUPS A/C/Y/W VACCINE Aged Out No longer eligible b ased on patient's age to complete this topic Procedures Procedure Name Priority Date/Time Associated Diagnosis Comments HEPATITIS C ANTIBODY Routine 09/21/2013 3:37 PM CDT from Last 3 Months or Most Recently Relevant to Health Maintenance Results * HEPATITIS C ANTIBODY (09/21/2013 3:37 PM CDT) Hepatitis C Antibody NON-REACTI VE NON-REACT ANGELICA [facility] ([facility]) Signal/Cutoff 0.02 <1.00 [facility] ([facility]) Comment: Test Performed at: [facility] [id number] [place] [address] KEYA MARTINEZ DO,MPH 09/21/2013 3:37 PM CDT 09/21/2013 3:37 PM CDT Carlita Serrano MD LAB - CHEMISTRY ORDERA MATY Edited Result - Final [facility] ([facility]) [id number] from Last 3 Months or Most Recently Relevant to Health Maintenance Insurance [facility] COUNT INCLUD[facility] THE [facility] Care Teams Solution Professional Relationship Specialty Start Date End Date Katerin Dela Cruz, PATIENT DAY COORDINATOR-JOI [address] [place] [address] PCP - General 08/12/20
--- OUTSIDE RECORDS SUMMARY | 2024-10-31 16:38 | XMS_ITS | Continuity of Care Document ---
Author Organization [facility] Address [address] [place] [address] [place] [address] Phone Care Team Providers Care Crook Operator Name Role Phone Vince Castañeda MD Unavailable Unavailable Advance Directives Directive Yes / No Effective Date File Name No Information Encounters Encounter Description Practice Location Reason(s) For Visit Diagnoses Date Provider Providers Copied on Encounter [facility], [address] [place], [place], [id number], [place] tel:[phone] [facility] No Information Garry Clarke. [address] [facility] [place], [id number], [place]. tel:[phone] Family History Family Member Type Diagnosis Age At Onset No Information Payers Payer name Insurance type Covered republican ID Authoriza tion(s) No Information Social History Type Description Quantity Date Captured Comments Sex Male Smoking Status No Information Chief Complaint And Reason For Visit No Information Plan Of Treatment Date Type Action Status No Information History Of Present Illness Encounter Date Complaint History Of Prese nt Illness No Information Instructions Date Instruction Additional Infor mation No Information Assessments Type Assessment Date No Information
--- OUTSIDE RECORDS SUMMARY | 2024-10-31 16:38 | XMS_ITS | Encounter Summary ---
Author Organization [facility] Address [address] [place] [address] Care Team Providers Care Database Developer Name Role Phone Maeve Chavarria [employer] BOATMAN-BUYER LIAISON Primary Care Provider Katerin Dela Cruz [employer] BOATMAN-BUYER LIAISON Primary Care Pro vider Encounter Details Date Type Department Care Team (Late st Contact Info) Description 05/26/2018 Telephone [facility] [address] [place], [place] [phone] Maeve Chavarria, [employer] BOATMAN-BUYER LIAISON [address] [facility] [address] [place] [address] Social History Tobacco Use Types Packs/Day Years Used Date Smoking Tobacco: Former Cigarettes Smokeless Tobacco: Never Alcohol Use Standard Drinks/Week Comments Yes 20 (1 standard drink = 0.6 oz pu re alcohol) Sex and Gender Information Value Date Recorded Sex Assigned at Not on file Legal Sex Male 5:12 PM WHITE MIXING OPERATOR Gender Identity Not on file Sexual Orientation Not on file documented as of this encounter Plan of Treatment Not on file documented as of this encounter Visit Diagnoses Not on filedocumented in this encounter Care Teams Database Developer Relationship Specialty Start Date End Date Maeve Chavarria APRN-BUYER LIAISON [address] [facility] [address] [place] [address] PCP - General 01/30/18 08/11/20 Katerin Dela Cruz, [employer] BOATMAN-BUYER LIAISON [address] [address] PCP - General 08/12/20 documented as of this encounter
--- OUTSIDE RECORDS SUMMARY | 2024-10-31 16:38 | XMS_ITS | Clinical Summary ---
Author Organization [facility] Address [address] [place] [address] Phone Care Team Providers Care Azure Architect Name Role Phone Hari Hernández MD Primary Care Provider Allergies Active Allergy Reactions Criticality Noted Date Comments Penicillins Unknown 08/21/2021 Medications rosuvastatin (CRESTOR) 20 mg tablet Take 20 mg by mouth daily. Active tofacitinib (Xeljanz XR) 11 mg Tablet Sustained Release 24HR Take 11 mg by mouth daily. 01/11/2021 Active predniSONE (DELTASONE) 20 mg tablet Take 40 mg by mouth daily. Active metoprolol tartrate (LOPRESSOR) 25 mg tablet Take 1 Tablet (25 mg) by mouth 2 times daily. 60 Tablet 08/22/2021 Active Active Problems Problem Noted Date Diagnosed Date Essential hypertension 08/21/2021 Psoriatic arthritis 08/21/2021 Syncope and collapse 08/21/2021 Hypotension 08/21/2021 HILARY (acute kidney injury) 08/21/2021 Other secondary thrombocytopenia 08/21/2021 Anemia, unspecified 08/21/2021 High anion gap metabolic acidosis 08/21/2021 Hyponatremia 08/21/2021 Elevated lactic acid level 08/21/2021 Elevated liver enzymes 08/21/2021 Elevated troponin 08/21/2021 Cigarette smoker 08/21/2021 Alcohol abuse 08/21/2021 Skin rash 08/21/2021 Non-traumatic rhabdomyolysis 08/21/2021 Immunizations Immunization Administration Dates Next Due (KIA) COVID-19 VACCINE - EMERGENCY USE AUTHORIZATION, AD26,COV2S(PF) 0.5 ML IM SUSP 11/07/2020 Family History Medical History Relation Name Comments Inflammatory Bowel Disease Father Stroke Maternal Grandfather Heart Disease Maternal Grandmother Relation Name Status Comments Father Maternal Grandfather Maternal Grandmother Social History Tobacco Use Types Packs/Day Years Used Date Smoking Tobacco: Every Day Cigarettes Smokeless Tobacco: Never Alcohol Use Standard Drinks/Week Comments Yes 3 (1 standard drink = 0.6 oz pur e alcohol) per week Sex and Gender Information Value Date Recorded Sex Assigned at Not on file Legal Sex Male 11:33 AM LATEX CASTER Gender Identity Not on file Sexual Orientation Not on file Last Filed Vital Signs Vital Sign Reading Time Taken Comments Blood Pressure 135/80 08/22/2021 11:16 AM LATEX CASTER Pulse 72 08/22/2021 11:16 AM LATEX CASTER Temperature 37.1 C (98.8 F) 08/22/2021 11:16 AM LATEX CASTER Respiratory Rate 12 08/22/2021 11:16 AM LATEX CASTER Oxygen Saturation 98% 08/22/2021 11:16 AM LATEX CASTER Inhaled Oxygen Concentration - - Weight 80.5 kg (177 lb 6.4 oz) 08/21/2021 4:18 P M LATEX CASTER Height 185.4 cm (6' 1 ) 08/21/2021 4:18 PM LATEX CASTER Body Mass Index 23.41 08/21/2021 4:18 PM LATEX CASTER Plan of Treatment Health Maintenance Due Date Last Done Comments DTAP/TDAP/TD VACCINES (1 - Tdap) 02/07/2000 HEPATITIS B VACCINES (1 of 3 - 19+ 3-dose series) 02/07/2000 INFLUENZA VACCINE (#1) 2024 COVID-19 Vaccine (2 - 2023-2 5 season) 2024 11/07/2020 HPV VACCINES Aged Out No longer eligi ble based on patient's age to complete this topic Insurance [facility] MEDICAID Advance Directives For more information, please contact: [phone] * Full Code (Latest Code Status on File) Date Activated Date Inactivated Comments 08/21/2021 3:50 PM 08/22/2021 4:36 PM Care Teams Azure Architect Relationship Specialty Start Date End Date Hari Hernández MD [address] [place] [address] PCP - General Family Practice 08/21/21
--- OUTSIDE RECORDS SUMMARY | 2024-10-31 16:43 | XMS_ITS | Continuity of Care Document ---
Author Organization [facility] Address [address] [place] [address] [place] [address] Phone Care Team Providers Care Manager Scientific Name Role Phone Vince Castañeda MD Unavailable Unavailable Advance Directives Directive Yes / No Effective Date File Name No Information Encounters Encounter Description Practice Location Reason(s) For Visit Diagnoses Date Provider Providers Copied on Encounter [facility], [address] [place], [id number], [place] tel:[phone] [facility] No Information Garry Clarke. [address] [facility] [place], [id number], [place]. tel:[phone] Family History Family Member Type Diagnosis Age At Onset No Information Payers Payer name Insurance type Covered green party ID Authoriza tion(s) No Information Social History [...]
== END 2024-10-31 16:57 | disposition home or self-care (01) ==
PROVIDERS: Emergency Provider Emergency Medicine; PCP Nurse Practitioner Family
DX: M54.50 Low back pain, unspecified (principal); W86.8XXA Exposure to other electric current, initial encounter; F41.8 Other specified anxiety disorders; I10 Essential (primary) hypertension; F17.210 Nicotine dependence, cigarettes, uncomplicated
CPT/HCPCS: 36415; 80053; 81003; 82550; 85025; 93005; 99283